=== PATIENT | female | born 1950 | race Caucasian/White ===

== ENCOUNTER 2016-12-21 03:14 | Observation (INO) | payer MEDICAID, OTHER ==
[2016-12-21] MEDS ORDERED: NS 1,000 ML IV ONE (03:23)
[2016-12-21] MEDS ORDERED: NITROGLYCERIN 0.4 MG BTL SL PRN ×2 (03:23→06:20)
[2016-12-21] MEDS ORDERED: NITROGLYCERIN 0.4 MG BTL SL ONE (03:25)
--- NOTE | 2016-12-21 03:27 | EDPHY ---
H & P HPI/ROS: HPI CHIEF COMPLAINT: Chest Pain, back pain HISTORY OF PRESENT ILLNESS: This patient very pleasant 66-year-old female, she presents emergency room by EMS for chest discomfort and back discomfort. Patient states around 11:00 p.m. at night she developed this discomfort across her upper back both sides both shoulders this pain was an achy sensation and then developed into her left side of her chest. She did become nauseous and diaphoretic with this. She tells me she felt very flushed. The pain persisted she did take full-dose aspirin and nitroglycerin that did not help. Due to the ongoing chest discomfort she called 911. EMS arrived. They did give her another dose of nitro which did help with her chest discomfort. She tells me that she initially had 10/10 discomfort now it is currently 2/10. No jaw pain no arm pain. No numbness or tingling. Denies pleuritic pain or shortness of breath. Past Medical History: Coronary artery disease with stents, hypertension, diabetes Past Surgical History: Cardiac stents Social History: Smokes marijuana regularly, denies drugs or alcohol or tobacco Family History: Noncontributory ROS REVIEW OF SYSTEMS: A comprehensive 10 point review of systems is otherwise negative aside from elements mentioned in the history of present illness. Exam Constitutional appears well nontoxic, triage nursing summary reviewed, vital signs reviewed, awake/alert. Eyes normal conjunctivae and sclera, EOMI, PERRLA. HENT normal inspection, atraumatic, moist mucus membranes, no epistaxis, neck supple/ no meningismus, no raccoon eyes. Respiratory clear to auscultation bilaterally, normal breath sounds, no respiratory distress, no wheezing. Cardiovascular rate normal, regular rhythm, no murmur, no edema, distal pulses normal. Gastrointestinal soft, non-tender, no rebound, no guarding, normal bowel sounds, no distension, no pulsatile mass. Genitourinary no CVA tenderness. Musculoskeletal no midline vertebral tenderness, full range of motion, no calf swelling, no tenderness of extremities, no meningismus, good pulses, neurovascularly intact. Skin pink, warm, & dry, no rash, skin atraumatic. Neurologic awake, alert and oriented x 3, AAOx3, moves all 4 extremities equally, motor intact, sensory intact, CN II-XII intact, normal cerebellar, normal vision, normal speech. Psychiatric normal mood/affect. Heme/Lymph/Immune no lymphadenopathy. Differential diagnosis includes but is not limited to: ACS, atypical chest pain , pneumothorax, pneumonia, pulmonary embolism, aortic dissection, congestive heart failure, tumor, musculoskeletal pain, esophageal pain, GERD, peptic ulcer disease, pancreatitis Medical Decision Making: Plan for this patient EKG, full director cardiac IV establishment, check blood work, troponin, chest x-ray. Re-evaluation: EKG interpretation by me on record in [facility] system. Impression time of EKG 3:19 a.m., this is sinus rhythm rate of 74 I do not appreciate acute ischemic changes specifically no ST elevation or significant ST depression. Slight motion artifact in inferior leads. ED x-ray chest one view: Negative for acute cardiopulmonary disease. Image interpreted by myself. 0356AM: Re-evaluation at this time she did receive a dose of nitroglycerin here in the emergency room. Did eliminate her chest discomfort. Blood pressures improved 144/86 Repeat EKG time 4:07 a.m.. This EKG shows sinus rhythm rate of 68 no appreciable acute ischemic changes specifically no ST elevation or ST depression. No significant T-wave abnormalities. Nonischemic EKG. 0429AM: Re-evaluation at this time patient resting comfortably. No chest pain. Spoke with the hospitalist service about admission for this patient patient agrees for admission. Spoke with Dr. Valencia. She is hemodynamically stable no acute distress chest pain-free negative troponin, negative D-dimer and 2 EKGs that are nonischemic. Will admit to [facility] for chest pain and further evaluation rule out. Patient agrees for this plan. Source: Patient, Family, EMS - Personal History Tetanus Vaccine Date: 2005 - Medical/Surgical History Hx Asthma: No Hx Chronic Respiratory Disease: No Hx Diabetes: Yes Hx Cardiac Disease: Yes Hx Renal Disease: No Hx Cirrhosis: No Hx Alcoholism: No Hx HIV/AIDS: No Hx Splenectomy or Spleen Trauma: No Other PMH: hypercholesteremia, diabetes, PTSD, CAD, PCI with stents in 2010, HTN - Social History Smoking Status: Never smoked Constitutional: Initial Vital Signs Temperature (C) 36.6 C 12/21/16 03:24 Heart Rate 81 12/21/16 03:24 Respiratory Rate 16 12/21/16 03:24 Blood Pressure 172/102 H 12/21/16 03:24 O2 Sat (%) 96 12/21/16 03:24 O2 Delivery Mode Room Air Allergies/Adverse Reactions: morphine Allergy (Unknown, Verified 12/21/16 03:23) Home Medications: Medication Instructions Recorded Ezetimibe [Zetia] 10 mg PO DAILY 01/11/11 Lisinopril [Zestril 10 mg (*)] 10 mg PO DAILY 01/11/11 Aspirin [Aspirin 325 mg (*)] 325 mg PO DAILY 09/22/14 Cholecalciferol Vit D3 [Vitamin D3 1,000 units PO BID 09/22/14 (*)] Herbals/Supplements -Info Only 1 ea PO DAILY 09/22/14 Otto-3 Fatty Acids [Fish Oil 1000 1,000 mg PO HS 09/22/14 mg (*)] Propranolol HCl [Inderal 20mg (*)] 20 mg PO BID 09/22/14 Topiramate [Topamax 25MG (*)] 25 mg PO HS 09/22/14 Vitamin B Complex [B Complex] 1 each PO DAILY 09/22/14 metFORMIN HCL [Glucophage 500 mg 1,000 mg PO BIDMEAL 09/22/14 (*)] Atorvastatin Calcium [Lipitor 40 80 mg PO HS #30 tab 09/23/14 mg (*)] Clopidogrel Bisulfate [Plavix (*)] 75 mg PO DAILY #30 tab 09/23/14 Nitroglycerin [Nitrostat 0.4 mg 0.4 mg SL PRN PRN #1 btl 09/23/14 (*)] Venlafaxine Xr [Effexor Xr] 150 mg PO DAILY 09/23/14 buPROPion SR [Wellbutrin 100mg SR 200 mg PO DAILY 09/23/14 (*)] Medical Decision Making - Data Points Laboratory Results: Laboratory Results 12/21/16 03:15 12/21/16 03:15 12/21/16 12/21/16 12/21/16 03:15 03:15 03:15 WBC 5.67 10^3/uL 10^3/uL (3.80-9.50) RBC 4.77 10^6/uL 10^6/uL (4.18-5.33) Hgb 14.2 g/dL g/dL (12.6-16.3) Hct 42.3 % % (38.0-47.0) MCV 88.7 fL fL (81.5-99.8) MCH 29.8 pg pg (27.9-34.1) MCHC 33.6 g/dL g/dL (32.4-36.7) RDW 12.8 % % (11.5-15.2) Plt Count 204 10^3/uL 10^3/uL (150-400) MPV 9.7 fL fL (8.7-11.7) Neut % (Auto) 64.8 % % (39.3-74.2) Lymph % (Auto) 23.3 % % (15.0-45.0) [place] % (Auto) 6.7 % % (4.5-13.0) Eos % (Auto) 4.6 % % (0.6-7.6) Baso % (Auto) 0.4 % % (0.3-1.7) Nucleat RBC Rel Count 0.0 % % (0.0-0.2) Absolute Neuts (auto) 3.68 10^3/uL 10^3/uL (1.70-6.50) Absolute Lymphs (auto) 1.32 10^3/uL 10^3/uL (1.00-3.00) Absolute Monos (auto) 0.38 10^3/uL 10^3/uL (0.30-0.80) Absolute Eos (auto) 0.26 10^3/uL 10^3/uL (0.03-0.40) Absolute Basos (auto) 0.02 10^3/uL 10^3/uL (0.02-0.10) Absolute Nucleated RBC 0.00 10^3/uL 10^3/uL (0-0.01) Immature Gran % 0.2 % % (0.0-1.1) Immature Gran # 0.01 10^3/uL 10^3/uL (0.00-0.10) PT 13.3 SEC SEC (12.0-15.0) INR 1.02 (0.83-1.16) APTT 27.0 SEC SEC (23.0-38.0) D-Dimer < 0.27 ug/mLFEU ug/mLFEU (0.00-0.50) Sodium 145 mEq/L H mEq/L (134-144) Potassium 3.7 mEq/L mEq/L (3.5-5.2) Chloride 109 mEq/L mEq/L (97-110) Carbon Dioxide 25 mEq/l mEq/l (22-31) Anion Gap 11 mEq/L mEq/L (8-16) BUN 23 mg/dL mg/dL (7-23) Creatinine 0.9 mg/dL mg/dL (0.6-1.0) Estimated GFR > 60 Glucose 136 mg/dL H mg/dL (70-100) Calcium 9.1 mg/dL mg/dL (8.5-10.4) Magnesium 2.2 mg/dL mg/dL (1.6-2.3) Total Bilirubin 0.4 mg/dL mg/dL (0.1-1.4) Conjugated Bilirubin 0.4 mg/dL mg/dL (0.0-0.5) Unconjugated Bilirubin 0.0 mg/dL mg/dL (0.0-1.1) AST 22 IU/L IU/L (14-46) ALT 32 IU/L IU/L (9-52) Alkaline Phosphatase 66 IU/L IU/L (38-126) Creatine Kinase 46 IU/L IU/L (0-156) CK-MB (CK-2) Fraction 0.47 ng/mL ng/mL (0-3.19) Troponin I < 0.012 ng/mL ng/mL (0-0.034) NT-Pro-B Natriuret Pep 117 pg/mL pg/mL (0-125) Total Protein 6.3 g/dL g/dL (6.3-8.2) Albumin 4.1 g/dL g/dL (3.5-5.0) Lipase 455.0 IU/L H IU/L (23-300) Medications Given: Discontinued Medications Sodium Chloride (Ns) 1,000 mls @ 0 mls/hr IV ONCE ONE PRN Reason: Wide Open Stop: 12/21/16 03:24 Last Admin: 12/21/16 04:00 Dose: 1,000 mls Nitroglycerin (Nitrostat) 0.4 mg SL Q5M PRN PRN Reason: Chest Pain Stop: 12/21/16 03:34 Last Admin: 12/21/16 03:30 Dose: 0.4 mg Departure - Departure Disposition: [facility] Inpatient Acute Clinical Impression: Chest pain Qualifiers: Chest pain type: unspecified Qualified Code(s): R07.9 - Chest pain, unspecified Condition: Good Referrals: Patient,NotPresent [Unknown] - As per Instructions
[2016-12-21 03:31] LABS: % IMMATURE GRANULYOCYTES 0.2 % (0.0-1.1); ABSOLUTE IMMATURE GRANULOCYTES 0.01 10^3/uL (0.00-0.10); ADD DIFF? NO; ADD MORPH? NO; ADD SCAN? NO; ATYPICAL LYMPHOCYTE FLAG 0 (0-99); FRAGMENT RBC FLAG 0 (0-99); HEMATOCRIT 42.3 % (38.0-47.0); HEMOGLOBIN 14.2 g/dL (12.6-16.3); LEFT SHIFT FLG 0 (0-99); LIPEMIA HEMOLYSIS FLAG 80 (0-99); MEAN CELL HEMOGLOBIN 29.8 pg (27.9-34.1); MEAN CELL HEMOGLOBIN CONCENTR. 33.6 g/dL (32.4-36.7); MEAN CELL VOLUME 88.7 fL (81.5-99.8); MEAN PLATELET VOLUME 9.7 fL (8.7-11.7); PLATELET CLUMPS FLAG 10 (0-99); PLATELET COUNT 204 10^3/uL (150-400); RED BLOOD CELL COUNT 4.77 10^6/uL (4.18-5.33); RED CELL DISTRIBUTION WIDTH 12.8 % (11.5-15.2)
--- NOTE | 2016-12-21 03:31 | CPEKG ---
Heart Rate: 74 RR Interval: 811 P-R Interval: 184 QRSD Interval: 98 QT Interval: 440 QTC Interval: 489 P [place]: 51 QRS [place]: -9 T Wave [place]: 75 EKG Severity - BORDERLINE ECG - EKG Impression: SINUS RHYTHM EKG Impression: BORDERLINE PROLONGED QT INTERVAL Electronically Signed By: Emir Car 21-Dec-2016 06:41:08
[2016-12-21 03:40] LABS: INR 1.02 (0.83-1.16); PROTIME(PATIENT) 13.3 SEC (12.0-15.0)
[2016-12-21 04:01] LABS: ALANINE AMINOTRANSFERASE 32 IU/L (9-52); ALBUMIN 4.1 g/dL (3.5-5.0); ALKALINE PHOSPHATASE 66 IU/L (38-126); ANION GAP 11 mEq/L (8-16); ASPARTATE AMINOTRANSFERASE 22 IU/L (14-46); BILIRUBIN,TOTAL 0.4 mg/dL (0.1-1.4); BILIRUBIN-CONJUGATED 0.4 mg/dL (0.0-0.5); CALCIUM 9.1 mg/dL (8.5-10.4); CARBON DIOXIDE 25 mEq/l (22-31); CHLORIDE 109 mEq/L (97-110); CREATININE 0.9 mg/dL (0.6-1.0); GLOMERULAR FILTRATION RATE > 60; GLUCOSE 136 mg/dL (70-100); MAGNESIUM 2.2 mg/dL (1.6-2.3); POTASSIUM 3.7 mEq/L (3.5-5.2); SODIUM 145 mEq/L (134-144); TOTAL PROTEIN 6.3 g/dL (6.3-8.2)
[2016-12-21 04:13] LABS: CREATINE KINASE-MB FRACTION 0.47 ng/mL (0-3.19); TROPONIN I < 0.012 ng/mL (0-0.034)
--- NOTE | 2016-12-21 07:34 | PDGENHP ---
History and Physical - Chief Complaint chest pain - History of Present Illness Patient is a 66 year old female with DM2, CAD (previous PCI in 2010, 2014), HTN , HLD who presents to the ED with complaint of chest pain. Patient states she was lying in bed reading a book this evening when she felt sudden onset, dull achy mid-back pain that radiated into her chest. At first she thought it was musculoskeletal because she had been doing a lot of housework in the day. However, pain persisted over the following hour, did not improve with SL nitro, so she called EMS. She reports some associated nausea, diaphoresis, but denies any shortness of breath, orthopnea, palpitations, lightheadedness or headache. EMS gave her another SL nitro and full dose aspirin en route to ED. Of note, patient reports her last stress test was about 1 year ago and unremarkable. Prior to this evening's episode, she denies any recent cardiac symptoms. On arrival to the ED, patient was afebrile, moderately hypertensive, saturating well. Initial EKG did not show any obvious ischemia, labs, including CBC, BMP, troponin, were within normal limits. She was given another SL nitro and finally her pain began to subside. She was then admitted to the hospitalist service for further management. History Information - Allergies/Home Medication List Allergies/Adverse Reactions: morphine Allergy (Unknown, Verified 12/21/16 03:23) Home Medications: Lisinopril [Zestril 10 mg (*)] 10 mg PO HS 01/11/11 [Last Taken 09/21/14] Aspirin [Aspirin 325 mg (*)] 325 mg PO DAILY 09/22/14 [Last Taken 09/22/14] Cholecalciferol Vit D3 [Vitamin D3 (*)] 1,000 units PO BID 09/22/14 [Last Taken Unknown] Herbals/Supplements -Info Only 1 ea PO DAILY 09/22/14 [Last Taken Unknown] [place]-3 Fatty Acids [Fish Oil 1000 mg (*)] 1,000 mg PO HS 09/22/14 [Last Taken Unknown] Propranolol HCl [Inderal 20mg (*)] 20 mg PO BID 09/22/14 [Last Taken 09/21/14] Topiramate [Topamax 25MG (*)] 25 mg PO HS 09/22/14 [Last Taken 09/21/14] Vitamin B Complex [B Complex] 1 each PO DAILY 09/22/14 [Last Taken Unknown] metFORMIN HCL [Glucophage 500 mg (*)] 1,000 mg PO DAILY18 09/22/14 [Last Taken 09/21/14] Venlafaxine Xr [Effexor Xr] 150 mg PO DAILY 09/23/14 [Last Taken Unknown] buPROPion SR [Wellbutrin 100mg SR (*)] 300 mg PO DAILY 09/23/14 [Last Taken Unknown] Rosuvastatin Calcium [Crestor 20mg (*)] 20 mg PO HS 12/21/16 [Last Taken Unknown ] Topiramate [Topamax 25MG (*)] 75 mg PO DAILY 12/21/16 [Last Taken Unknown] buPROPion SR [Wellbutrin 100mg SR (*)] 100 mg PO HS 12/21/16 [Last Taken Unknown ] I have personally reviewed and updated: family history, medical history, social history, surgical history - Past Medical History Additional medical history: DM2, on insulin and metformin. Hypertension. Hyperlipidemia. CAD with PCI to LAD in 2010, repeat PCI to LAD in 2014. Depression/anxiety/PTSD - Surgical History Additional surgical history: x2. foot surgeries. wisdom teeth - Family History Additional family history: Father: CAD. Mother: CVA - Social History Smoking Status: Never smoked Alcohol Use: None Drug Use: None Additional social history: Patient lives with her daughter and , is independent in ADLs. Review of Systems ROS: 10pt was reviewed & negative except for what was stated in HPI & below Physical Exam Temp Pulse Resp BP Pulse Ox 36.6 C 68 16 142/83 H 95 12/21/16 04:59 12/21/16 05:21 12/21/16 05:21 12/21/16 05:21 12/21/16 05:21 Constitutional: no apparent distress, appears nourished, not in pain Eyes: PERRL, anicteric sclera, EOMI Ears, Nose, Mouth, Throat: moist mucous membranes, hearing normal, ears appear normal, no oral mucosal ulcers Cardiovascular: regular rate and rhythym, no murmur, rub, or gallop, pulses symmetric bilaterally, No JVD, No edema Peripheral Pulses: 2+: dorsalis-pedis (R), dorsalis-pedis (L) Respiratory: no respiratory distress, no rales or rhonchi, clear to auscultation Gastrointestinal: normoactive bowel sounds, soft, non-tender abdomen, no palpable masses, No tenderness, No guarding, No rebound Genitourinary: no bladder fullness, no bladder tenderness Skin: warm, normal color, no rashes or abrasions, no fluctuance, no induration, No mottled Musculoskeletal: full muscle strength, no muscle tenderness, normal joint ROM, no joint effusions Neurologic: AAOx3, sensation intact bilaterally, CN II-XII Intact, No weakness, No numbness Psychiatric: interacting appropriately, not anxious, not encephalopathic, thought process linear Lab Data & Imaging Review 12/21/16 03:15 12/21/16 03:15 WBC 5.67 10^3/uL (3.80-9.50) 12/21/16 03:15 RBC 4.77 10^6/uL (4.18-5.33) 12/21/16 03:15 Hgb 14.2 g/dL (12.6-16.3) 12/21/16 03:15 Hct 42.3 % (38.0-47.0) 12/21/16 03:15 MCV 88.7 fL (81.5-99.8) 12/21/16 03:15 MCH 29.8 pg (27.9-34.1) 12/21/16 03:15 MCHC 33.6 g/dL (32.4-36.7) 12/21/16 03:15 RDW 12.8 % (11.5-15.2) 12/21/16 03:15 Plt Count 204 10^3/uL (150-400) 12/21/16 03:15 MPV 9.7 fL (8.7-11.7) 12/21/16 03:15 Neut % (Auto) 64.8 % (39.3-74.2) 12/21/16 03:15 Lymph % (Auto) 23.3 % (15.0-45.0) 12/21/16 03:15 [place] % (Auto) 6.7 % (4.5-13.0) 12/21/16 03:15 Eos % (Auto) 4.6 % (0.6-7.6) 12/21/16 03:15 Baso % (Auto) 0.4 % (0.3-1.7) 12/21/16 03:15 Nucleat RBC Rel Count 0.0 % (0.0-0.2) 12/21/16 03:15 Absolute Neuts (auto) 3.68 10^3/uL (1.70-6.50) 12/21/16 03:15 Absolute Lymphs (auto) 1.32 10^3/uL (1.00-3.00) 12/21/16 03:15 Absolute Monos (auto) 0.38 10^3/uL (0.30-0.80) 12/21/16 03:15 Absolute Eos (auto) 0.26 10^3/uL (0.03-0.40) 12/21/16 03:15 Absolute Basos (auto) 0.02 10^3/uL (0.02-0.10) 12/21/16 03:15 Absolute Nucleated RBC 0.00 10^3/uL (0-0.01) 12/21/16 03:15 Immature Gran % 0.2 % (0.0-1.1) 12/21/16 03:15 Immature Gran # 0.01 10^3/uL (0.00-0.10) 12/21/16 03:15 PT 13.3 SEC (12.0-15.0) 12/21/16 03:15 INR 1.02 (0.83-1.16) 12/21/16 03:15 APTT 27.0 SEC (23.0-38.0) 12/21/16 03:15 D-Dimer < 0.27 ug/mLFEU (0.00-0.50) 12/21/16 03:15 Sodium 145 mEq/L (134-144) H 12/21/16 03:15 Potassium 3.7 mEq/L (3.5-5.2) 12/21/16 03:15 Chloride 109 mEq/L (97-110) 12/21/16 03:15 Carbon Dioxide 25 mEq/l (22-31) 12/21/16 03:15 Anion Gap 11 mEq/L (8-16) 12/21/16 03:15 BUN 23 mg/dL (7-23) 12/21/16 03:15 Creatinine 0.9 mg/dL (0.6-1.0) 12/21/16 03:15 Estimated GFR > 60 12/21/16 03:15 Glucose 136 mg/dL (70-100) H 12/21/16 03:15 Calcium 9.1 mg/dL (8.5-10.4) 12/21/16 03:15 Magnesium 2.2 mg/dL (1.6-2.3) 12/21/16 03:15 Total Bilirubin 0.4 mg/dL (0.1-1.4) 12/21/16 03:15 Conjugated Bilirubin 0.4 mg/dL (0.0-0.5) 12/21/16 03:15 Unconjugated Bilirubin 0.0 mg/dL (0.0-1.1) 12/21/16 03:15 AST 22 IU/L (14-46) 12/21/16 03:15 ALT 32 IU/L (9-52) 12/21/16 03:15 Alkaline Phosphatase 66 IU/L (38-126) 12/21/16 03:15 Creatine Kinase 46 IU/L (0-156) 12/21/16 03:15 CK-MB (CK-2) Fraction 0.47 ng/mL (0-3.19) 12/21/16 03:15 Troponin I < 0.012 ng/mL (0-0.034) 12/21/16 03:15 NT-Pro-B Natriuret Pep 117 pg/mL (0-125) 12/21/16 03:15 Total Protein 6.3 g/dL (6.3-8.2) 12/21/16 03:15 Albumin 4.1 g/dL (3.5-5.0) 12/21/16 03:15 Lipase 455.0 IU/L (23-300) H 12/21/16 03:15 Visualized and Interpreted Chest x-ray results: Yes Chest X-Ray results: no infiltrate, normal Visualized and Interpreted EKG results: Yes EKG Interpretation: Positive for: normal sinsus rhythm (no obnvious st/twave changes) Assessment & Plan Assessment: Patient is a 66 year old female with previous CAD s/p PCI, DM2, HTN, HLD who presents to the ED with complaint of chest pain radiating into her back. ED evaluation reveals negative troponin, normal initial EKG, but given her history she is being admitted to rule out ACS and for further risk stratification Plan: # chest pain Patient is at high risk for cardiac chest pain. Pain has resolved with nitro. Initial EKG and troponin neg. CXR shows normal mediastinum, no obvious edema or effusions. Will follow serial troponins and EKGs, check TTE. Last normal stress test was about 1 year ago. If ACS is ruled out, consider repeat stress. Will also continue patient's home CAD regimen of aspirin, plavix, acei, b-kareem, statin. # Hypertension BP was moderately elevated on presentation, improved without intervention. Will confirm and continue home meds. # DM2 Patient took her evening Levemir on 12/20, is npo if stress test needed, so will need to monitor for signs of hypoglycemia. # depression/anxiety Stable, resume home meds. # dispo: admit under observation status # gen: NPO Full code
--- NOTE | 2016-12-21 07:36 | CPEKG ---
Heart Rate: 68 RR Interval: 882 P-R Interval: 180 QRSD Interval: 96 QT Interval: 440 QTC Interval: 469 P [place]: 51 QRS [place]: 6 T Wave [place]: 84 EKG Severity - NORMAL ECG - EKG Impression: SINUS RHYTHM Electronically Signed By: Anneliese Granado 23-Dec-2016 14:59:48
[2016-12-21] MEDS ORDERED: PROPRANOLOL HCL 20 MG TAB PO SCH (09:00)
[2016-12-21] MEDS ORDERED: TOPIRAMATE 25 MG TAB PO SCH ×2 (09:00→21:00)
[2016-12-21] MEDS ORDERED: buPROPion SR 100 MG TAB PO SCH ×2 (09:00→21:00)
[2016-12-21] MEDS ORDERED: CLOPIDOGREL BISULFATE 75 MG TAB PO SCH (09:00)
[2016-12-21] MEDS ORDERED: VENLAFAXINE XR 150 MG CAP PO SCH (09:00)
[2016-12-21] MEDS ORDERED: ASPIRIN 325 MG TAB PO SCH (09:00)
--- NOTE | 2016-12-21 09:02 | CPEKG ---
Heart Rate: 62 RR Interval: 968 P-R Interval: 176 QRSD Interval: 100 QT Interval: 444 QTC Interval: 451 P [place]: 60 QRS [place]: -13 T Wave [place]: 82 EKG Severity - ABNORMAL ECG - EKG Impression: SINUS RHYTHM EKG Impression: PROBABLE LEFT VENTRICULAR HYPERTROPHY Electronically Signed By: Otto Mcclelland 21-Dec-2016 14:29:20
--- NOTE | 2016-12-21 10:43 | ECHO ---
[id number] + + [phone] : : [place] [id number] : : [phone] + + Adult Echocardiographic Report + -----+ :Name: Poornima PENA Date: 12/21/2016 07:42 AM : : Hospital Admission Number: [id number] Location : 142: :: 1950 Gender: Female Height: 67 in : :Age: 66 yrs Race: WH Weight: 185 lb : :Reason For Study: Chest pain radiating into back : : BSA: 2.0 meters2 : :History: LAD stent : + -----+ MMode/2D Measurements \T\ Calculations IVSd: 0.80 cm LVIDd: 4.6 cm FS: 32.2 % Ao root diam: LVPWd: 0.91 cm LVIDs: 3.1 cm EDV(Teich): 3.2 cm 95.3 ml LA dimension: ESV(Teich): 3.7 cm 37.6 ml EF(Teich): 60.6 % LVLd ap4: 7.8 cm SV(MOD-sp4): EDV(MOD-sp4): 35.0 ml 55.0 ml LVLs ap4: 6.7 cm ESV(MOD-sp4): 20.0 ml EF(MOD-sp4): 63.6 % Normal Measurement Values: + + :LVIDd (3.5-5.7cm) IVSd (0.6-1.1cm) LVPWd (0.6-1.1cm) Aortic Root (2.0-3.7cm)Left Atrium (1.5-4.0cm): :LV Vol(d) (76-115ml) LV Vol(s) (29-48ml) Ejec Fraction (50-65%)PV [place] (0.6- 1.2m/s) TV [place] (0.4-1.0m/s) : :MV E [place] (0.8-1.0m/s)MV A [place] (0.3-1.0m/s)LVOT [place] (0.7-1.2m/s) Asc Ao [place] ( 0.9-1.8m/s) : + + Doppler Measurements \T\ Calculations MV E max roosevelt: 75.5 cm/sec Ao V2 max: 111.3 cm/sec TR max roosevelt: 228.0 cm/sec MV A max roosevelt: 64.2 cm/sec Ao max P.0 mmHg TR max P.8 mmHg MV E/A: 1.2 RAP systole: 5.0 mmHg RVSP(TR): 25.8 mmHg Left Ventricle The left ventricle is normal in size. There is normal left ventricular wall thickness. Left ventricular systolic function is normal. Ejection Fraction = 60%. No regional wall motion abnormalities noted. Right Ventricle The right ventricle is normal in size and function. Atria The left atrial size is normal. Right atrial size is normal. The interatrial septum is intact with no evidence for an atrial septal defect. Mitral Valve The mitral valve is normal in structure and function. There is no evidence of mitral valve prolapse. There is no mitral valve stenosis. Tricuspid Valve Normal tricuspid valve. There is mild tricuspid regurgitation. Aortic Valve The aortic valve is trileaflet. The aortic valve opens well. There is no aortic stenosis. There is no aortic insufficiency. Pulmonic Valve The pulmonic valve is normal in structure and function. There is no pulmonic valvular regurgitation. Great Vessels The aortic root is normal size. Pericardium/Pleural There is no pericardial effusion. Conclusion A complete two-dimensional transthoracic echocardiogram was performed (2D, M-mode, Doppler and color flow Doppler). Left ventricular systolic function is normal. Ejection Fraction = 60%. No regional wall motion abnormalities noted. There is mild tricuspid regurgitation. Final Reading Physician: Anastacia Freitas signed on 12/21/2016 10:42 AM Ordering Physician: Rose Marie Valencia Performed By: Emma Sosa, DEREJECS
[2016-12-21 11:48] VITALS: TEMP 97.3
--- NOTE | 2016-12-21 13:33 | PDCARCONS ---
Cardiology Consult Reason for Consult: Chest pain with history of CAD Chief Complaint: chest pain Requesting Physician: hospitalist History of Present Illness: Patient is a 66 y/o female with history of CAD s/p PCI to the LAD in 2010, and again in 2014 due to restenosis, HTN, HLP, and DM, who presents to [facility] ER via EMS after noting chest discomfort at home. Discomfort was best clarified as "pain" with substernal location and radiation into the back. Initial discomfort was 10/10, but by the time she was seen in the ER, it was down to a 2 /10. At home, NTG was dosed with little to no effect. With EMS, therapy was redosed again, and by the time she reached the ER, the pains had subsided. Nausea was noted with diaphoresis, but no emesis. No PND or orthopnea. Compliance with medical therapy has been good. was at bedside today. Blood pressures have been controlled at home. Cardiac biomarkers without elevation noted. ECG without dynamic ST elevation noted, but non specific ST/T wave changes were appreciated. At present, the patient is without any cardiovascular complaints. Ten point review of systems was unremarkable outside of that which was mentioned above. History Information - Allergies/Home Medication List Allergies/Adverse Reactions: morphine Allergy (Unknown, Verified 12/21/16 03:23) Home Medications: RX: Lisinopril [Zestril 10 mg (*)] 10 mg PO HS 01/11/11 [Last Taken 09/21/14] RX: Aspirin [Aspirin 325 mg (*)] 325 mg PO DAILY 09/22/14 [Last Taken 09/22/14] RX: Cholecalciferol Vit D3 [Vitamin D3 (*)] 1,000 units PO BID 09/22/14 [Last Taken Unknown] RX: Herbals/Supplements -Info Only 1 ea PO DAILY 09/22/14 [Last Taken Unknown] RX: [place]-3 Fatty Acids [Fish Oil 1000 mg (*)] 1,000 mg PO HS 09/22/14 [Last Taken Unknown] RX: Propranolol HCl [Inderal 20mg (*)] 20 mg PO BID 09/22/14 [Last Taken ] RX: Topiramate [Topamax 25MG (*)] 25 mg PO HS 09/22/14 [Last Taken 09/21/14] RX: Vitamin B Complex [B Complex] 1 each PO DAILY 09/22/14 [Last Taken Unknown] RX: metFORMIN HCL [Glucophage 500 mg (*)] 1,000 mg PO DAILY18 09/22/14 [Last Taken 09/21/14] RX: Venlafaxine Xr [Effexor Xr] 150 mg PO DAILY 09/23/14 [Last Taken Unknown] RX: buPROPion SR [Wellbutrin 100mg SR (*)] 300 mg PO DAILY 09/23/14 [Last Taken Unknown] Rosuvastatin Calcium [Crestor 20mg (*)] 20 mg PO HS 12/21/16 [Last Taken Unknown ] Topiramate [Topamax 25MG (*)] 75 mg PO DAILY 12/21/16 [Last Taken Unknown] buPROPion SR [Wellbutrin 100mg SR (*)] 100 mg PO HS 12/21/16 [Last Taken Unknown ] I have personally reviewed and updated: family history, medical history, social history, surgical history - Past Medical History coronary artery disease, diabetes type 2, hypertension, hyperlipidemia, psychiatric history - Surgical History Reports: coronary stent - Family History Positive for: hypertension - Social History Smoking Status: Never smoked Alcohol Use: None Drug Use: Marijuana Cardiac History - Cardiac History Past Cardiac History: CAD, PCI Cardiac Risk Factors: hypertension (>140/90), lipidemia, diabetes mellitus Timing/Duration: Hours Severity: severe Severity Scale: 10 Location: substernal Activities at Onset: rest Modifying Factors: improves with: nitroglycerin, oxygen Associated Symptoms: chest pain, diaphoresis, headaches, malaise, nausea/ vomiting, shortness of breath, weakness CRISTI Risk Evaluation age greater or equal to 65: no greater or equal to 3 CAD risk factors: yes known CAD(stenosis greater or eqaul to 50%): yes ASA use in past 7 days: yes severe angina(greater or equal to 2 episodes in 24hrs): no EKG ST changes greater or equal to 0.5mm: yes positive cardiac marker: no Total Score: 5 CRISTI Score: 26.2% risk Physical Exam Temp Pulse Resp BP Pulse Ox 36.3 C 66 20 158/88 H 96 12/21/16 11:47 12/21/16 11:47 12/21/16 11:47 12/21/16 11:47 12/21/16 11:47 Constitutional: no apparent distress, appears nourished, not in pain Eyes: PERRL Ears, Nose, Mouth, Throat: moist mucous membranes, hearing normal, ears appear normal Cardiovascular: regular rate and rhythym, no murmur, rub, or gallop, No JVD, No edema Peripheral Pulses: 2+: dorsalis-pedis (R), dorsalis-pedis (L) Respiratory: no respiratory distress, no rales or rhonchi, clear to auscultation Gastrointestinal: normoactive bowel sounds Skin: warm, No rash Musculoskeletal: full muscle strength, no muscle tenderness, normal joint ROM Neurologic: AAOx3 Psychiatric: interacting appropriately, not anxious, not encephalopathic Lab and Imaging 12/21/16 03:15 12/21/16 03:15 WBC 5.67 10^3/uL (3.80-9.50) 12/21/16 03:15 RBC 4.77 10^6/uL (4.18-5.33) 12/21/16 03:15 Hgb 14.2 g/dL (12.6-16.3) 12/21/16 03:15 Hct 42.3 % (38.0-47.0) 12/21/16 03:15 MCV 88.7 fL (81.5-99.8) 12/21/16 03:15 MCH 29.8 pg (27.9-34.1) 12/21/16 03:15 MCHC 33.6 g/dL (32.4-36.7) 12/21/16 03:15 RDW 12.8 % (11.5-15.2) 12/21/16 03:15 Plt Count 204 10^3/uL (150-400) 12/21/16 03:15 MPV 9.7 fL (8.7-11.7) 12/21/16 03:15 Neut % (Auto) 64.8 % (39.3-74.2) 12/21/16 03:15 Lymph % (Auto) 23.3 % (15.0-45.0) 12/21/16 03:15 [place] % (Auto) 6.7 % (4.5-13.0) 12/21/16 03:15 Eos % (Auto) 4.6 % (0.6-7.6) 12/21/16 03:15 Baso % (Auto) 0.4 % (0.3-1.7) 12/21/16 03:15 Nucleat RBC Rel Count 0.0 % (0.0-0.2) 12/21/16 03:15 Absolute Neuts (auto) 3.68 10^3/uL (1.70-6.50) 12/21/16 03:15 Absolute Lymphs (auto) 1.32 10^3/uL (1.00-3.00) 12/21/16 03:15 Absolute Monos (auto) 0.38 10^3/uL (0.30-0.80) 12/21/16 03:15 Absolute Eos (auto) 0.26 10^3/uL (0.03-0.40) 12/21/16 03:15 Absolute Basos (auto) 0.02 10^3/uL (0.02-0.10) 12/21/16 03:15 Absolute Nucleated RBC 0.00 10^3/uL (0-0.01) 12/21/16 03:15 Immature Gran % 0.2 % (0.0-1.1) 12/21/16 03:15 Immature Gran # 0.01 10^3/uL (0.00-0.10) 12/21/16 03:15 PT 13.3 SEC (12.0-15.0) 12/21/16 03:15 INR 1.02 (0.83-1.16) 12/21/16 03:15 APTT 27.0 SEC (23.0-38.0) 12/21/16 03:15 D-Dimer < 0.27 ug/mLFEU (0.00-0.50) 12/21/16 03:15 Sodium 145 mEq/L (134-144) H 12/21/16 03:15 Potassium 3.7 mEq/L (3.5-5.2) 12/21/16 03:15 Chloride 109 mEq/L (97-110) 12/21/16 03:15 Carbon Dioxide 25 mEq/l (22-31) 12/21/16 03:15 Anion Gap 11 mEq/L (8-16) 12/21/16 03:15 BUN 23 mg/dL (7-23) 12/21/16 03:15 Creatinine 0.9 mg/dL (0.6-1.0) 12/21/16 03:15 Estimated GFR > 60 12/21/16 03:15 Glucose 136 mg/dL (70-100) H 12/21/16 03:15 Calcium 9.1 mg/dL (8.5-10.4) 12/21/16 03:15 Magnesium 2.2 mg/dL (1.6-2.3) 12/21/16 03:15 Total Bilirubin 0.4 mg/dL (0.1-1.4) 12/21/16 03:15 Conjugated Bilirubin 0.4 mg/dL (0.0-0.5) 12/21/16 03:15 Unconjugated Bilirubin 0.0 mg/dL (0.0-1.1) 12/21/16 03:15 AST 22 IU/L (14-46) 12/21/16 03:15 ALT 32 IU/L (9-52) 12/21/16 03:15 Alkaline Phosphatase 66 IU/L (38-126) 12/21/16 03:15 Creatine Kinase 46 IU/L (0-156) 12/21/16 03:15 CK-MB (CK-2) Fraction 0.47 ng/mL (0-3.19) 12/21/16 03:15 Troponin I < 0.012 ng/mL (0-0.034) 12/21/16 09:00 NT-Pro-B Natriuret Pep 117 pg/mL (0-125) 12/21/16 03:15 Total Protein 6.3 g/dL (6.3-8.2) 12/21/16 03:15 Albumin 4.1 g/dL (3.5-5.0) 12/21/16 03:15 Lipase 455.0 IU/L (23-300) H 12/21/16 03:15 Visualized and Interpreted Chest x-ray results: Yes Chest X-ray Interpretation: no infiltrate, normal Visualized and Interpreted EKG results: Yes EKG Interpretation: Positive for: normal sinsus rhythm, NS ST wave abnormalities Telemetry: normal sinus rhythm Echocardiogram: not performed A/P Assessment: Patient is a 66 y/o female with history of CAD s/p PCI to the LAD (2010, 2014), HTN, HLP, and DM, who presented to [facility] ER via EMS with complaints of chest pain. Symptoms were different that those noted in the past (with the interventions). No cardiac biomarker elevation has been noted, and no dynamic ST/T wave changes were noted. Compliance with medical therapy has been good. No new "stressors" for the patient. Several options were discussed with the patient. Option 1: Eleni MPI. Option 2: angiogram. Given a lack of symptoms, lack of ECG changes, and no biomarker elevation, would pursue the MPI testing. Patient was in agreement with these plans. Plan: (1) Would arrange for Eleni MPI (2) maintain therapy on ASA and Plavix for life with CAD/PCI history (3) Statins should continue for HLP history - maintain annual assessment of cholesterol and LFTs (4) Would continue ACEi therapy for HTN (5) Aggressive DM therapy to continue (6) Further recommendations after testing has been completed Patient and were in agreement with these plans.
[2016-12-21] MEDS ORDERED: ACETAMINOPHEN 500 MG TAB PO ONE (14:00)
[2016-12-21] MEDS ORDERED: REGADENOSON 0.4 MG/5 ML SYR IVP ONE (14:16)
--- NOTE | 2016-12-21 15:08 | CPR ---
[f rep st] NONINVASIVE CARDIAC PROCEDURE REPORT DATE OF PROCEDURE: 12/21/2016 STUDY PERFORMED: Nuclear Lexiscan stress test. REASON FOR TEST: Chest discomfort. DETAILS OF PROCEDURE: Resting EKG shows a regular sinus rhythm with a rate of 64. There are no isc hemic changes noted. Resting blood pressure 134/90, oxygen saturation 92%. She is asymptomatic. Stress portion: Lexiscan was injected rapidly followed by saline flush. Cardiolite was injected fo llowed by saline flush per protocol. She did have shortness of breath after the injection and notic ed some discomfort in her jaw. Blood pressure 156/80. Peak heart rate 98, oxygen saturation 99%. T here were no EKG changes. Recovery: Final blood pressure was 160/98, oxygen saturation 90%, heart rate 93, shortness of breat h had improved. Caffeine was given during recovery. At this time, she is stable to proceed with jorge marie. /[id number]/MODL
[2016-12-21 15:56] VITALS: BP 140/86; PULSE 70; RESP 18; O2SAT 95
[2016-12-21] MEDS ORDERED: ROSUVASTATIN CALCIUM 20 MG TAB PO SCH (21:00)
[2016-12-21] MEDS ORDERED: LISINOPRIL 10 MG TAB PO SCH (21:00)
--- NOTE | 2016-12-21 21:00 | GDS ---
[f rep st] DISCHARGE SUMMARY DISCHARGE DIAGNOSES: 1. Chest pain, most likely noncardiac. 2. History of coronary artery disease. 3. Type 2 diabetes. 4. Hypertension. 5. Depression and anxiety. HISTORY: This is a 66-year-old female with a history of coronary artery disease. She presented wit h substernal chest pain that lasted about 2 hours. HOSPITAL COURSE: Patient was admitted. Cardiac enzymes were negative x2. Cardiology was consulted . Stress test was performed after 2 negative troponins. There was possibly some decreased uptake i n the left ventricular apex, but that could be thinning versus an apical infarct, but no ischemia. She was chest pain free, and she was discharged home to follow up with her primary conservation educator. /[id number]/MODL
== END 2016-12-21 16:01 | disposition home or self-care (01) ==
LOC: EDUNIT# → F1N 04:45
PROVIDERS: ADMIT Internal Medicine; ATTEND Internal Medicine
DX: R07.89 Other chest pain (principal); I25.10 Atherosclerotic heart disease of native coronary artery without angina pectoris; I10 Essential (primary) hypertension; E78.5 Hyperlipidemia, unspecified; E11.9 Type 2 diabetes mellitus without complications; Z95.5 Presence of coronary angioplasty implant and graft; F41.8 Other specified anxiety disorders
CPT/HCPCS: 78452; 93005; 93017; 93306; A9500; G0378; J2785

== ENCOUNTER 2017-01-26 21:47 | Observation (INO) | payer MEDICAID ==
--- NOTE | 2017-01-26 22:12 | CPEKG ---
Heart Rate: 74 RR Interval: 811 P-R Interval: 168 QRSD Interval: 98 QT Interval: 432 QTC Interval: 480 P [place]: 58 QRS [place]: -15 T Wave [place]: 81 EKG Severity - OTHERWISE NORMAL ECG - EKG Impression: SINUS RHYTHM EKG Impression: BORDERLINE LEFT AXIS DEVIATION Electronically Signed By: Hemanth Sweeney 27-Jan-2017 05:57:08
[2017-01-26 22:34] LABS: % IMMATURE GRANULYOCYTES 0.2 % (0.0-1.1); ABSOLUTE IMMATURE GRANULOCYTES 0.01 10^3/uL (0.00-0.10); ADD DIFF? NO; ADD MORPH? NO; ADD SCAN? NO; ATYPICAL LYMPHOCYTE FLAG 10 (0-99); FRAGMENT RBC FLAG 0 (0-99); HEMATOCRIT 41.3 % (38.0-47.0); LEFT SHIFT FLG 0 (0-99); LIPEMIA HEMOLYSIS FLAG 90 (0-99); MEAN CELL HEMOGLOBIN CONCENTR. 33.9 g/dL (32.4-36.7); MEAN CELL VOLUME 88.4 fL (81.5-99.8); MEAN PLATELET VOLUME 9.5 fL (8.7-11.7); PLATELET CLUMPS FLAG 0 (0-99); PLATELET COUNT 212 10^3/uL (150-400); RED BLOOD CELL COUNT 4.67 10^6/uL (4.18-5.33); RED CELL DISTRIBUTION WIDTH 13.1 % (11.5-15.2)
[2017-01-26 22:46] LABS: ANION GAP 10 mEq/L (8-16); CALCIUM 9.3 mg/dL (8.5-10.4); CARBON DIOXIDE 20 mEq/l (22-31); CHLORIDE 108 mEq/L (97-110); CREATININE 0.9 mg/dL (0.6-1.0); GLOMERULAR FILTRATION RATE > 60; GLUCOSE 158 mg/dL (70-100); POTASSIUM 4.2 mEq/L (3.5-5.2); SODIUM 138 mEq/L (134-144)
[2017-01-26 22:57] LABS: TROPONIN I < 0.012 ng/mL (0-0.034)
--- NOTE | 2017-01-26 23:22 | EDPHY ---
H & P Stated Complaint: CP since radiates to boths sides and neck, diaphoretic Time Seen by Provider: 01/26/17 23:01 HPI/ROS: Chief Complaint: Chest pain HPI: 66-year-old woman with past medical history coronary artery disease status post stenting in 1999 11 and again in 2014. Patient had chest tightness for about 45 minutes Saturday morning. Saw her junior oracle dba, Dr. Dinero later that day and is scheduled for a catheterization Saturday. Patient states that approximately 915 tonight she had substernal chest pain that radiated to her shoulders and neck. This lasted about 10 minutes. Is described as a tightness. It was a 9/10. She did not have any shortness of breath. Did have some diaphoresis and some nausea. She was seen here for similar episode on the 21 of December. Denies any fevers or chills. No abdominal pain. No palpitations or syncope. ROS: 10 point Review of Systems is negative except as noted in the HPI. PMH: Coronary artery disease, type 2 diabetes, hypertension, hyperlipidemia, PTSD Social History: No smoking, rare alcohol, occasional marijuana Family History: Positive for coronary artery disease Physical Exam: Gen: Awake, Alert, No Distress HEENT: Nose: no rhinorrhea Eyes: PERRLA, EOMI Mouth: Moist mucosa Neck: Supple, no JVD Chest: nontender, lungs clear to auscultation Heart: S1, S2 normal, no murmur Abd: Soft, non-tender, no guarding Back: no CVA tenderness, no midline tenderness Ext: no edema, non-tender Skin: no rash Neuro: CN II-XII intact, Sensation grossly intact, Strength 5/5 in bilateral upper and lower extremities - Personal History Current Tetanus/Diphtheria Vaccine: Unsure Current Tetanus Diphtheria and Acellular Pertussis (TDAP): Unsure Tetanus Vaccine Date: 2011 - Medical/Surgical History Hx Asthma: No Hx Chronic Respiratory Disease: No Hx Diabetes: Yes Hx Cardiac Disease: Yes Hx Renal Disease: No Hx Cirrhosis: No Hx Alcoholism: No Hx HIV/AIDS: No Hx Splenectomy or Spleen Trauma: No Other PMH: hypercholesteremia, diabetes, PTSD, CAD, PCI with stents in 2010, HTN ; CSections x2;bilat Bunionectomies, and neuroma's removed bilat feet - Social History Smoking Status: Never smoked Constitutional: Initial Vital Signs Heart Rate 86 01/26/17 21:49 Respiratory Rate 18 01/26/17 21:49 Blood Pressure 138/89 H 01/26/17 21:49 O2 Sat (%) 96 01/26/17 21:49 O2 Delivery Mode Room Air Allergies/Adverse Reactions: morphine Allergy (Unknown, Verified 01/26/17 21:53) Vomiting Home Medications: Medication Instructions Recorded Lisinopril [Zestril 10 mg (*)] 10 mg PO HS 01/11/11 Aspirin [Aspirin 325 mg (*)] 325 mg PO DAILY 09/22/14 Cholecalciferol Vit D3 [Vitamin D3 1,000 units PO BID 09/22/14 (*)] Herbals/Supplements -Info Only 1 ea PO DAILY 09/22/14 [place]-3 Fatty Acids [Fish Oil 1000 1,000 mg PO HS 09/22/14 mg (*)] Propranolol HCl [Inderal 20mg (*)] 20 mg PO BID 09/22/14 Topiramate [Topamax 25MG (*)] 25 mg PO HS 09/22/14 Vitamin B Complex [B Complex] 1 each PO DAILY 09/22/14 metFORMIN HCL [Glucophage 500 mg 1,000 mg PO DAILY18 09/22/14 (*)] Clopidogrel Bisulfate [Plavix (*)] 75 mg PO DAILY #30 tab 09/23/14 Nitroglycerin [Nitrostat 0.4 mg 0.4 mg SL PRN PRN #1 btl 09/23/14 (*)] Venlafaxine Xr [Effexor Xr] 150 mg PO DAILY 09/23/14 buPROPion SR [Wellbutrin 100mg SR 300 mg PO DAILY 09/23/14 (*)] Rosuvastatin Calcium [Crestor 20mg 20 mg PO HS 12/21/16 (*)] Topiramate [Topamax 25MG (*)] 75 mg PO DAILY 12/21/16 buPROPion SR [Wellbutrin 100mg SR 100 mg PO HS 12/21/16 (*)] Ranitidine HCl 01/26/17 Medical Decision Making - Diagnostics EKG Interpretation: ECG time 8:28 p.m., sinus rhythm with a rate of 74, borderline left axis deviation, normal intervals, no acute ST or T-wave changes. This is unchanged from her prior ECG from 12/21/2016 ED Course/Re-evaluation: [age] with history of coronary artery disease with substernal chest pain concerning for cardiac cause at 9:50 a.m. this evening. Patient is pain free now. She is scheduled for catheterization Saturday morning. This is her 2nd episode this week. She will require admission for further evaluation. This troponin is negative. Patient is comfortable no complaints at this time. - Data Points Laboratory Results: Laboratory Results 01/26/17 22:30 01/26/17 22:30 01/26/17 01/26/17 22:30 22:30 WBC 5.62 10^3/uL 10^3/uL (3.80-9.50) RBC 4.67 10^6/uL 10^6/uL (4.18-5.33) Hgb 14.0 g/dL g/dL (12.6-16.3) Hct 41.3 % % (38.0-47.0) MCV 88.4 fL fL (81.5-99.8) MCH 30.0 pg pg (27.9-34.1) MCHC 33.9 g/dL g/dL (32.4-36.7) RDW 13.1 % % (11.5-15.2) Plt Count 212 10^3/uL 10^3/uL (150-400) MPV 9.5 fL fL (8.7-11.7) Neut % (Auto) 60.4 % % (39.3-74.2) Lymph % (Auto) 28.3 % % (15.0-45.0) [place] % (Auto) 6.6 % % (4.5-13.0) Eos % (Auto) 4.1 % % (0.6-7.6) Baso % (Auto) 0.4 % % (0.3-1.7) Nucleat RBC Rel Count 0.0 % % (0.0-0.2) Absolute Neuts (auto) 3.40 10^3/uL 10^3/uL (1.70-6.50) Absolute Lymphs (auto) 1.59 10^3/uL 10^3/uL (1.00-3.00) Absolute Monos (auto) 0.37 10^3/uL 10^3/uL (0.30-0.80) Absolute Eos (auto) 0.23 10^3/uL 10^3/uL (0.03-0.40) Absolute Basos (auto) 0.02 10^3/uL 10^3/uL (0.02-0.10) Absolute Nucleated RBC 0.00 10^3/uL 10^3/uL (0-0.01) Immature Gran % 0.2 % % (0.0-1.1) Immature Gran # 0.01 10^3/uL 10^3/uL (0.00-0.10) Sodium 138 mEq/L mEq/L (134-144) Potassium 4.2 mEq/L mEq/L (3.5-5.2) Chloride 108 mEq/L mEq/L (97-110) Carbon Dioxide 20 mEq/l L mEq/l (22-31) Anion Gap 10 mEq/L mEq/L (8-16) BUN 20 mg/dL mg/dL (7-23) Creatinine 0.9 mg/dL mg/dL (0.6-1.0) Estimated GFR > 60 Glucose 158 mg/dL H mg/dL (70-100) Calcium 9.3 mg/dL mg/dL (8.5-10.4) Troponin I < 0.012 ng/mL ng/mL (0-0.034) Departure - Departure Referrals: MADISON AZAR [Other] - As per Instructions
[2017-01-27] MEDS ORDERED: ONDANSETRON DISINTEGRATING 4 MG TAB PO PRN (00:46)
[2017-01-27] MEDS ORDERED: ALBUTEROL 3 ML DEYVIAL IH PRN (00:46)
[2017-01-27] MEDS ORDERED: LORazepam 0.5 MG TAB PO PRN (00:46)
[2017-01-27] MEDS ORDERED: ACETAMINOPHEN 325 MG TAB PO PRN (00:46)
[2017-01-27] MEDS ORDERED: ONDANSETRON 4 MG/2 ML VIAL IVP PRN (00:46)
--- NOTE | 2017-01-27 00:52 | PDGENHP ---
History and Physical - Chief Complaint chest pain - History of Present Illness Patient is a 66 year old female with DM2, CAD (previous PCI in 2010, 2014), HTN , HLD, and recent [facility] admission 1 month ago for chest pain who presents to the ED with complaint of chest pain. In her recent admission, she was ruled out for ACS with negative troponins, normal serial EKGs. NM stress test was performed and revealed no reversible ischemia, possible small infarct in her apex. She was discharged with outpatient cardiology follow up. Since discharge, she had not experienced any symptoms until 01/24. On that night, she was sleeping in bed when she woke suddently with substernal chest pain. Patient states she describes the pain as dull achy substernal pain that radiated into her bilateral arms and mid back. At that time, she did not want to seek emergent medical care, symptoms lasted about 30 minutes and the resolved. The following morning she was evaluated by her systems software engineer's office, and reports that she was scheduled to undergo an elective cardiac cath on 01/[address] Dinero. However, this evening while watching television, patient has another episode of chest pain, described as similar to above, associated with nausea, diaphoresis and dyspnea. Given this, she decided to come to the ED for further evaluation. Prior to leaving, she did take a full dose aspirin with improvement of her symptoms. On arrival to the ED patient was afebrile hemodynamically stable. Labs revealed normal CBC, BMP and negative troponin. EKG revealed normal sinus rhythm without obvious ischemic changes. She was admitted to the hospital service for further management. History Information - Allergies/Home Medication List Allergies/Adverse Reactions: morphine Allergy (Unknown, Verified 01/26/17 21:53) Vomiting Home Medications: Lisinopril [Zestril 10 mg (*)] 10 mg PO HS 01/11/11 [Last Taken 09/21/14] Aspirin [Aspirin 325 mg (*)] 325 mg PO DAILY 09/22/14 [Last Taken 09/22/14] Cholecalciferol Vit D3 [Vitamin D3 (*)] 1,000 units PO BID 09/22/14 [Last Taken Unknown] Herbals/Supplements -Info Only 1 ea PO DAILY 09/22/14 [Last Taken Unknown] [place]-3 Fatty Acids [Fish Oil 1000 mg (*)] 1,000 mg PO HS 09/22/14 [Last Taken Unknown] Propranolol HCl [Inderal 20mg (*)] 20 mg PO BID 09/22/14 [Last Taken 09/21/14] Topiramate [Topamax 25MG (*)] 25 mg PO HS 09/22/14 [Last Taken 09/21/14] Vitamin B Complex [B Complex] 1 each PO DAILY 09/22/14 [Last Taken Unknown] metFORMIN HCL [Glucophage 500 mg (*)] 1,000 mg PO DAILY18 09/22/14 [Last Taken 09/21/14] Venlafaxine Xr [Effexor Xr] 150 mg PO DAILY 09/23/14 [Last Taken Unknown] buPROPion SR [Wellbutrin 100mg SR (*)] 300 mg PO DAILY 09/23/14 [Last Taken Unknown] Rosuvastatin Calcium [Crestor 20mg (*)] 20 mg PO HS 12/21/16 [Last Taken Unknown ] Topiramate [Topamax 25MG (*)] 75 mg PO DAILY 12/21/16 [Last Taken Unknown] buPROPion SR [Wellbutrin 100mg SR (*)] 100 mg PO HS 12/21/16 [Last Taken Unknown ] Ranitidine HCl 01/26/17 [Last Taken Unknown] I have personally reviewed and updated: family history, medical history, social history, surgical history - Past Medical History coronary artery disease, diabetes type 2, hypertension, hyperlipidemia, psychiatric history Additional medical history: DM2, on insulin and metformin. Hypertension. Hyperlipidemia. CAD with PCI to LAD in 2010, repeat PCI to LAD in 2014; Lexiscan on 12/2016. Depression/anxiety/PTSD - Surgical History Reports: coronary stent Additional surgical history: x2. foot surgeries. wisdom teeth - Family History Positive for: hypertension Additional family history: Father: CAD. Mother: CVA - Social History Smoking Status: Never smoked Additional social history: Patient lives with her daughter and , is independent in ADLs. Review of Systems ROS: 10pt was reviewed & negative except for what was stated in HPI & below Physical Exam Temp Pulse Resp BP Pulse Ox 37 C 86 18 138/89 H 96 01/26/17 21:54 01/26/17 21:54 01/26/17 21:54 01/26/17 21:54 01/26/17 21:54 Constitutional: no apparent distress, appears nourished, not in pain Eyes: PERRL, anicteric sclera, EOMI Ears, Nose, Mouth, Throat: moist mucous membranes, hearing normal, ears appear normal, no oral mucosal ulcers Cardiovascular: regular rate and rhythym, no murmur, rub, or gallop, pulses symmetric bilaterally, No JVD, No edema Peripheral Pulses: 2+: dorsalis-pedis (R), dorsalis-pedis (L) Respiratory: no respiratory distress, no rales or rhonchi, clear to auscultation Gastrointestinal: normoactive bowel sounds, soft, non-tender abdomen, no palpable masses, No tenderness, No guarding, No rebound Genitourinary: no bladder fullness, no bladder tenderness Skin: warm, normal color, no rashes or abrasions, no fluctuance, no induration, No mottled Musculoskeletal: full muscle strength, no muscle tenderness, normal joint ROM, no joint effusions Neurologic: AAOx3, sensation intact bilaterally, CN II-XII Intact, No weakness, No numbness, No facial droop Psychiatric: interacting appropriately, not anxious, not encephalopathic, thought process linear Lab Data & Imaging Review 01/27/17 03:33 01/26/17 22:30 WBC 5.62 10^3/uL (3.80-9.50) 01/26/17 22:30 RBC 4.67 10^6/uL (4.18-5.33) 01/26/17 22:30 Hgb 14.0 g/dL (12.6-16.3) 01/26/17 22:30 Hct 41.3 % (38.0-47.0) 01/26/17 22:30 MCV 88.4 fL (81.5-99.8) 01/26/17 22:30 MCH 30.0 pg (27.9-34.1) 01/26/17 22:30 MCHC 33.9 g/dL (32.4-36.7) 01/26/17 22:30 RDW 13.1 % (11.5-15.2) 01/26/17 22:30 Plt Count 212 10^3/uL (150-400) 01/26/17 22:30 MPV 9.5 fL (8.7-11.7) 01/26/17 22:30 Neut % (Auto) 60.4 % (39.3-74.2) 01/26/17:30 Lymph % (Auto) 28.3 % (15.0-45.0) 01/26/17 22:30 [place] % (Auto) 6.6 % (4.5-13.0) 01/26/17 22:30 Eos % (Auto) 4.1 % (0.6-7.6) 01/26/17: Baso % (Auto) 0.4 % (0.3-1.7) 01/26/17:30 Nucleat RBC Rel Count 0.0 % (0.0-0.2) 01/26/17: Absolute Neuts (auto) 3.40 10^3/uL (1.70-6.50) 01/26/17:30 Absolute Lymphs (auto) 1.59 10^3/uL (1.00-3.00) 01/26/17 22:30 Absolute Monos (auto) 0.37 10^3/uL (0.30-0.80) 01/26/17 22:30 Absolute Eos (auto) 0.23 10^3/uL (0.03-0.40) 01/26/17:30 Absolute Basos (auto) 0.02 10^3/uL (0.02-0.10) 01/26/17:30 Absolute Nucleated RBC 0.00 10^3/uL (0-0.01) 01/26/17: Immature Gran % 0.2 % (0.0-1.1) 01/26/17:30 Immature Gran # 0.01 10^3/uL (0.00-0.10) 01/26/17 22:30 Sodium 138 mEq/L (134-144) 01/26/17 22:30 Potassium 4.2 mEq/L (3.5-5.2) 01/26/17:30 Chloride 108 mEq/L (97-110) 01/26/17:30 Carbon Dioxide 20 mEq/l (22-31) L 01/26/17 22:30 Anion Gap 10 mEq/L (8-16) 01/26/17 22:30 BUN 20 mg/dL (7-23) 01/26/17 22:30 Creatinine 0.9 mg/dL (0.6-1.0) 01/26/17 22:30 Estimated GFR > 60 01/26/17 22:30 Glucose 158 mg/dL (70-100) H 01/26/17 22:30 Calcium 9.3 mg/dL (8.5-10.4) 01/26/17 22:30 Troponin I < 0.012 ng/mL (0-0.034) 01/26/17 22:30 Visualized and Interpreted EKG results: Yes EKG Interpretation: Positive for: normal sinsus rhythm (no st/t wave abnormalities) Assessment & Plan Assessment: Patient is a 66-year-old female with a history of previous CAD with stenting, HTN, HLD and DM2 who presents to the ED with recurrent episodes of chest pain. [facility] admission in 12/2016 for similar presentation, however, given recurrence of symptoms, outpatient systems software engineer had scheduled patient for cardiac angiogram to further investigate. She was admitted this evening for recurrent chest pain symptoms. Plan: # chest pain Initial EKG and troponin are nonischemic; NM stress in 12/2016 did not show any reversible ischemic changes. However, patient states she was seen by Dr. Dinero on 01/25 and was recommended to undergo cardiac cath on 01/28. Given her recurrent cardiac symptoms, she is being admitted and will contact cardiology about inpatient cath. - cont to monitor troponins, serial ekgs - check TTE - f/u cardiology recommendations - resume home regimen # DM2 Glucose stable, will monitor FS and cover with sliding scale insulin # HTN BP stable, will resume home BP meds. # dispo: admit to observation status # gen: NPO DVT ppx: if staying for > 24 hours, start lovenox Full code
[2017-01-27] MEDS: OXYCODONE/APAP 5/325 TAB PO PRN ×2 (02:15→19:31)
[2017-01-27] MEDS ORDERED: OXYCODONE/APAP 5/325 TAB ONE (02:23)
[2017-01-27 04:01] LABS: % IMMATURE GRANULYOCYTES 0.4 % (0.0-1.1); ABSOLUTE IMMATURE GRANULOCYTES 0.02 10^3/uL (0.00-0.10); ADD DIFF? NO; ADD MORPH? NO; ADD SCAN? NO; ATYPICAL LYMPHOCYTE FLAG 10 (0-99); FRAGMENT RBC FLAG 0 (0-99); HEMATOCRIT 38.5 % (38.0-47.0); HEMOGLOBIN 12.9 g/dL (12.6-16.3); LEFT SHIFT FLG 0 (0-99); LIPEMIA HEMOLYSIS FLAG 80 (0-99); MEAN CELL HEMOGLOBIN 29.7 pg (27.9-34.1); MEAN CELL HEMOGLOBIN CONCENTR. 33.5 g/dL (32.4-36.7); MEAN CELL VOLUME 88.7 fL (81.5-99.8); MEAN PLATELET VOLUME 9.6 fL (8.7-11.7); PLATELET CLUMPS FLAG 0 (0-99); PLATELET COUNT 185 10^3/uL (150-400); RED BLOOD CELL COUNT 4.34 10^6/uL (4.18-5.33)
[2017-01-27 04:11] LABS: ANION GAP 8 mEq/L (8-16); CARBON DIOXIDE 19 mEq/l (22-31); CHLORIDE 112 mEq/L (97-110); CREATININE 0.8 mg/dL (0.6-1.0); GLOMERULAR FILTRATION RATE > 60; GLUCOSE 148 mg/dL (70-100); MAGNESIUM 2.2 mg/dL (1.6-2.3); POTASSIUM 4.1 mEq/L (3.5-5.2); SODIUM 139 mEq/L (134-144)
[2017-01-27 04:13] LABS: INR 1.06 (0.83-1.16); PROTIME(PATIENT) 13.7 SEC (12.0-15.0)
[2017-01-27 04:14] LABS: APTT 28.6 SEC (23.0-38.0)
[2017-01-27] MEDS ORDERED: D50W 25 GM/50 ML SYR IVP PRN (04:17)
[2017-01-27 04:23] LABS: CREATINE KINASE-MB FRACTION 0.36 ng/mL (0-3.19); TROPONIN I < 0.012 ng/mL (0-0.034)
[2017-01-27] MEDS: INSULIN LISPRO 100 UNIT/ML SC SCH ×3 (08:00→18:39)
[2017-01-27] MEDS ORDERED: NITROGLYCERIN 0.4 MG BTL SL PRN (11:03)
[2017-01-27] MEDS ORDERED: DIAZEPAM 5 MG TAB PO ONE (11:09)
[2017-01-27] MEDS ORDERED: diphenhydrAMINE 25 MG CAP PO ONE (11:09)
[2017-01-27] MEDS ORDERED: TEMAZEPAM 15 MG CAP PO PRN (11:09)
--- NOTE | 2017-01-27 11:09 | HOSPPROG ---
Hospitalist Progress Note Assessment/Plan: 66-year-old diabetes hypertension and dyslipidemia presents with recurrent chest pain. She had a negative workup a month ago here in the hospital and followed up with [facility]. The plan was for an elective angiogram on Saturday. However she had recurrent chest pain prior to admission. # chest pain: Discussed with Dr. Mcclelland who will determine whether she will get a angiogram today or tomorrow for further evaluation of her chest # diabetes: Will continue her usual insulin. # hypertension on lisinopril # dyslipidemia on statin Subjective: No chest pain over night, comfortable. Objective: Vital Signs Temp Pulse Resp BP Pulse Ox 36.4 C 64 10 L 126/66 H 94 01/27/17 08:00 01/27/17 08:00 01/27/17 08:00 01/27/17 08:00 01/27/17 08:00 Laboratory Results 01/27/17 03:33 01/27/17 03:33 PT 13.7 SEC (12.0-15.0) 01/27/17 03:33 INR 1.06 (0.83-1.16) 01/27/17 03:33 - Physical Exam Constitutional: no apparent distress, not in pain Eyes: PERRL Cardiovascular: regular rate and rhythym, no murmur, rub, or gallop, No edema Respiratory: no respiratory distress, no rales or rhonchi, clear to auscultation Gastrointestinal: normoactive bowel sounds, soft, non-tender abdomen Neurologic: AAOx3 ICD10 Worksheet Patient Problems: Problems Problem Status Onset Chest pain Acute
--- NOTE | 2017-01-27 11:21 | PDCARCONS ---
Cardiology Consult Reason for Consult: Chest pain Chief Complaint: Chest pain Requesting Physician: Enoch History of Present Illness: 66-year-old female well known to me history of coronary artery disease multiple PCIs of the LAD in the setting of hypertension hyperlipidemia and diabetes. Patient presents with recurrent chest discomfort. She was last in the hospital in early December. At that time she ruled out for myocardial infarction by serial enzymes. She was seen in the office with recurrent symptoms and was scheduled for diagnostic angiogram tomorrow. She presented now with resting pain. Cardiac risk factors include hypertension hyperlipidemia diabetes known coronary disease. Cardiac review of systems is negative for PND orthopnea palpitations syncope near syncope. History Information - Allergies/Home Medication List Allergies/Adverse Reactions: morphine Allergy (Unknown, Verified 01/26/17 21:53) Vomiting Home Medications: Lisinopril [Zestril 10 mg (*)] 10 mg PO HS 01/11/11 [Last Taken 01/25/17] Aspirin [Aspirin 325 mg (*)] 325 mg PO DAILY 09/22/14 [Last Taken 01/26/17] Cholecalciferol Vit D3 [Vitamin D3 (*)] 1,000 units PO BID 09/22/14 [Last Taken 01/26/17] Herbals/Supplements -Info Only 1 ea PO DAILY 09/22/14 [Last Taken Unknown] [place]-3 Fatty Acids [Fish Oil 1000 mg (*)] 1,000 mg PO HS 09/22/14 [Last Taken 01/25/17] Propranolol HCl [Inderal 20mg (*)] 20 mg PO BID 09/22/14 [Last Taken 01/26/17] Topiramate [Topamax 25MG (*)] 25 mg PO HS 09/22/14 [Last Taken 01/25/17] Vitamin B Complex [B Complex] 1 each PO DAILY 09/22/14 [Last Taken 01/26/17] metFORMIN HCL [Glucophage 500 mg (*)] 1,000 mg PO DAILY18 09/22/14 [Last Taken 01/25/17] Venlafaxine Xr [Effexor Xr] 150 mg PO DAILY 09/23/14 [Last Taken 01/26/17] buPROPion SR [Wellbutrin 100mg SR (*)] 300 mg PO DAILY 09/23/14 [Last Taken 06/04] Rosuvastatin Calcium [Crestor 20mg (*)] 20 mg PO HS 12/21/16 [Last Taken ] Topiramate [Topamax 25MG (*)] 50 mg PO DAILY 12/21/16 [Last Taken 01/26/17] buPROPion SR [Wellbutrin 100mg SR (*)] 100 mg PO HS 12/21/16 [Last Taken ] Amoxicillin Trihydrate [Amoxicillin] 500 mg PO Q12H 01/27/17 [Last Taken ] Hydrocodone/APAP 5/325 [[place] 5/325 (*)] 0.5 - 1 tab PO BID PRN 01/27/17 [Last Taken 01/26/17] Insulin Detemir [Levemir Flextouch] 27 unit SQ HS 01/27/17 [Last Taken 01/25/17] Ranitidine HCl 150 mg PO BID 01/27/17 [Last Taken 01/26/17] I have personally reviewed and updated: family history, medical history, social history, surgical history - Past Medical History coronary artery disease - Social History Smoking Status: Never smoked Cardiac History - Cardiac History Past Cardiac History: CAD, PCI Cardiac Risk Factors: hypertension (>140/90), lipidemia, diabetes mellitus Timing/Duration: Days Severity: moderate Severity Scale: 6 Location: substernal Activities at Onset: rest CRISTI Risk Evaluation age greater or equal to 65: no greater or equal to 3 CAD risk factors: yes known CAD(stenosis greater or eqaul to 50%): yes ASA use in past 7 days: yes severe angina(greater or equal to 2 episodes in 24hrs): yes EKG ST changes greater or equal to 0.5mm: no positive cardiac marker: no Total Score: 4 CRISTI Score: 19.9% risk Physical Exam Temp Pulse Resp BP Pulse Ox 36.4 C 64 10 L 126/66 H 94 01/27/17 08:00 01/27/17 08:00 01/27/17 08:00 01/27/17 08:00 01/27/17 08:00 Constitutional: no apparent distress, appears nourished Eyes: PERRL, anicteric sclera Ears, Nose, Mouth, Throat: moist mucous membranes Cardiovascular: regular rate and rhythym, no murmur, rub, or gallop, No JVD Peripheral Pulses: 1+: carotid (R), carotid (L), femoral (R), femoral (L), dorsalis-pedis (R), dorsalis-pedis (L) Respiratory: no respiratory distress, no rales or rhonchi Gastrointestinal: normoactive bowel sounds, soft, non-tender abdomen Genitourinary: no bladder fullness Skin: warm, normal color Musculoskeletal: full muscle strength, no muscle tenderness Neurologic: AAOx3, sensation intact bilaterally, No weakness Psychiatric: interacting appropriately, not anxious Lymph, Heme, Immunologic: no cervical LAD, no supraclavicular LAD Lab and Imaging 01/27/17 03:33 01/27/17 03:33 WBC 5.36 10^3/uL (3.80-9.50) 01/27/17 03:33 RBC 4.34 10^6/uL (4.18-5.33) 01/27/17 03:33 Hgb 12.9 g/dL (12.6-16.3) 01/27/17 03:33 Hct 38.5 % (38.0-47.0) 01/27/17 03:33 MCV 88.7 fL (81.5-99.8) 01/27/17 03:33 MCH 29.7 pg (27.9-34.1) 01/27/17 03:33 MCHC 33.5 g/dL (32.4-36.7) 01/27/17 03:33 RDW 13.0 % (11.5-15.2) 01/27/17 03:33 Plt Count 185 10^3/uL (150-400) 01/27/17 03:33 MPV 9.6 fL (8.7-11.7) 01/27/17 03:33 Neut % (Auto) 61.3 % (39.3-74.2) 01/27/17 03:33 Lymph % (Auto) 28.9 % (15.0-45.0) 01/27/17 03:33 [place] % (Auto) 5.8 % (4.5-13.0) 01/27/17 03:33 Eos % (Auto) 3.2 % (0.6-7.6) 01/27/17 03:33 Baso % (Auto) 0.4 % (0.3-1.7) 01/27/17 03:33 Nucleat RBC Rel Count 0.0 % (0.0-0.2) 01/27/17 03:33 Absolute Neuts (auto) 3.29 10^3/uL (1.70-6.50) 01/27/17 03:33 Absolute Lymphs (auto) 1.55 10^3/uL (1.00-3.00) 01/27/17 03:33 Absolute Monos (auto) 0.31 10^3/uL (0.30-0.80) 01/27/17 03:33 Absolute Eos (auto) 0.17 10^3/uL (0.03-0.40) 01/27/17 03:33 Absolute Basos (auto) 0.02 10^3/uL (0.02-0.10) 01/27/17 03:33 Absolute Nucleated RBC 0.00 10^3/uL (0-0.01) 01/27/17 03:33 Immature Gran % 0.4 % (0.0-1.1) 01/27/17 03:33 Immature Gran # 0.02 10^3/uL (0.00-0.10) 01/27/17 03:33 PT 13.7 SEC (12.0-15.0) 01/27/17 03:33 INR 1.06 (0.83-1.16) 01/27/17 03:33 APTT 28.6 SEC (23.0-38.0) 01/27/17 03:33 Sodium 139 mEq/L (134-144) 01/27/17 03:33 Potassium 4.1 mEq/L (3.5-5.2) 01/27/17 03:33 Chloride 112 mEq/L (97-110) H 01/27/17 03:33 Carbon Dioxide 19 mEq/l (22-31) L 01/27/17 03:33 Anion Gap 8 mEq/L (8-16) 01/27/17 03:33 BUN 20 mg/dL (7-23) 01/27/17 03:33 Creatinine 0.8 mg/dL (0.6-1.0) 01/27/17 03:33 Estimated GFR > 60 01/27/17 03:33 Glucose 148 mg/dL (70-100) H 01/27/17 03:33 POC Glucose 126 mg/dL (70-100) H 01/27/17 09:56 Calcium 9.0 mg/dL (8.5-10.4) 01/27/17 03:33 Magnesium 2.2 mg/dL (1.6-2.3) 01/27/17 03:33 CK-MB (CK-2) Fraction 0.36 ng/mL (0-3.19) 01/27/17 03:33 Troponin I < 0.012 ng/mL (0-0.034) 01/27/17 03:33 Visualized and Interpreted Chest x-ray results: Yes Visualized and Interpreted imaging results: Yes Visualized and Interpreted EKG results: Yes A/P Assessment: Impression: 66-year-old female known coronary artery disease history of multiple LAD PCIs in the setting of hypertension hyperlipidemia and diabetes presenting with recurrent resting substernal chest pressure. Plan for diagnostic angiogram for risk stratification with an eye towards interventions. Risks and benefits of this approach were discussed with the patient will proceed. Radial artery approach recommended to reduce bleeding risk. Plan: 1. Diagnostic angiogram. 2. Continue aggressive secondary prevention. Past Medical History - Personal History Current Tetanus/Diphtheria Vaccine: Unsure Current Tetanus Diphtheria and Acellular Pertussis (TDAP): Unsure Tetanus Vaccine Date: 2011 - Medical/Surgical History Hx Asthma: No Hx Chronic Respiratory Disease: No Hx Cardiac Disease: Yes Hx Diabetes: Yes Hx Renal Disease: No Hx Alcoholism: No Hx Cirrhosis: No Hx HIV/AIDS: No Hx Splenectomy or Spleen Trauma: No Other PMH: hypercholesteremia, diabetes type 2, PTSD, CAD, PCI with stents in 2010, 2014 to LAD, HTN; CSections x2;bilat Bunionectomies, and neuroma's removed bilat feet - Social History Smoking Status: Never smoked Review of Systems - Review of Systems Constitutional: denies: chills, fever EENTM: no symptoms reported Respiratory: no symptoms reported Cardiac: chest pain. denies: edema, irregular heart rate, lightheadedness, palpitations, syncope Gastrointestinal/Abdominal: no symptoms reported Genitourinary: no symptoms Musculoskelatal: no symptoms Skin: no symptoms Neurological: no symptoms Hematologic/Lymphatic: no symptoms reported
[2017-01-27] MEDS ORDERED: fentaNYL 100 MCG/2 ML INJ ONE (12:30)
[2017-01-27] MEDS ORDERED: LIDOCAINE 1% 300 MG/30 ML SDV ONE (12:30)
[2017-01-27] MEDS ORDERED: MIDAZOLAM 2 MG/2 ML VIAL ONE ×3 (12:30→13:42)
[2017-01-27] MEDS ORDERED: IOPAMIDOL (ISOVUE-370) 150 ML BTL IV ONE ×3 (12:31→13:48)
[2017-01-27] MEDS ORDERED: VERAPAMIL 5 MG/2 ML VIAL ONE (12:31)
[2017-01-27] MEDS ORDERED: HEPARIN 10,000 UNIT/10 ML MDV ONE (12:31)
[2017-01-27] MEDS ORDERED: D10W 250 ML PRN HYPOGLYCEMIA IV (13:30)
[2017-01-27] MEDS ORDERED: NITROGLYCERIN 1,500 MCG/15 ML VIAL MISC ONE (13:47)
[2017-01-27] MEDS ORDERED: ASPIRIN 325 MG TAB ONE (13:51)
[2017-01-27] MEDS ORDERED: CLOPIDOGREL BISULFATE 75 MG TAB ONE (13:51)
[2017-01-27] MEDS ORDERED: ATROPINE SULFATE 1 MG/10 ML SYR IVP PRN (13:57)
--- NOTE | 2017-01-27 14:02 | PDDXCAT ---
Diagnostic Cath Note - . Date: 01/27/17 Director Of Software Development: Denis Indication: CCC Class III and IV angina on medical treatment - Procedure Access: left wrist Procedure: left heart catheterization, coronary angiography, left ventriculogram - Materials Left Heart Cath size: 4F Left Heart Cath materials: standard multipack (JL4, JR4, pigtail) - Findings-Left Heart Catheterization LM: Unobstructed LAD: 85% stenosis proximal to the previous site of stenting. LCX: unobstructed RCA: Dominant: Unobstructed EDP: 15 mm of mercury LVEF: 65 percent Wall motion: Normal Complications: None Estimated blood loss: <50ml Closure method: TR Band Assessment: 1. Crescendo angina with 85% stenosis of the LAD proximal to site of prior stenting. 2. Preserved LV systolic function. Plan: Ad Hoc PCI of the LAD Intervention: Procedure: Direct stenting of the LAD. After reviewing diagnostic angiograms it was elected to proceed with ad Hoc PCI. Patient was anticoagulated with heparin. Therapeutic ACT was confirmed. Using a 6 [place] JL4 guiding catheter the left main coronary was selectively intubated. Guiding shots were performed. Using a 0.014 luge wire the LAD stenosis was crossed. It was primarily stented with a 4.0 x 16 mm synergy stent. Position was confirmed in two views and the stent was deployed using a single inflation. Repeat angiogram showed CRISTI grade 3 flow through the LAD. There was moderate plaque shift to the principal diagonal. A 0.014 cm RI wire was used to cross into the diagonal. Attempts at dilating the side branch were made but the balloon would not pass. Patient was administered intracoronary nitroglycerin with marked improvement in stenosis of the diagonal. It was elected to stop at this time. Wires were withdrawn. Final orthogonal angiograms were obtained. Final diagnosis: Successful primary stenting of the LAD with a 4.0 x 16 mm synergy stent. Plan: Continue aggressive secondary prevention with dual antiplatelet therapy. Patient Problems: Problems Problem Status Onset Status post insertion of drug-eluting stent into left anterior descending (LAD) artery Acute Coronary arteriosclerosis Acute Chest pain Acute
--- NOTE | 2017-01-27 14:38 | CPEKG ---
Heart Rate: 66 RR Interval: 909 P-R Interval: 168 QRSD Interval: 92 QT Interval: 460 QTC Interval: 482 P [place]: 46 QRS [place]: -15 T Wave [place]: 61 EKG Severity - OTHERWISE NORMAL ECG - EKG Impression: SINUS RHYTHM EKG Impression: BORDERLINE LEFT AXIS DEVIATION Electronically Signed By: Fabio Reno 27-Jan-2017 18:32:33
[2017-01-27] MEDS: HYDROCODONE/APAP 5/325 TAB PO PRN (14:48)
[2017-01-27] MEDS: TOPIRAMATE 25 MG TAB PO SCH (14:55)
[2017-01-27] MEDS: VENLAFAXINE XR 150 MG CAP PO SCH (14:55)
[2017-01-27] MEDS ORDERED: buPROPion SR 100 MG TAB PO SCH (21:00)
[2017-01-27] MEDS ORDERED: ROSUVASTATIN CALCIUM 20 MG TAB PO SCH (21:00)
[2017-01-27] MEDS ORDERED: INSULIN DETEMIR 27 UNIT SQ SCH (21:00)
[2017-01-27] MEDS ORDERED: NON-FORMULARY NEW DRUG (Ranitidine Hcl [Ranitidine Hcl] 150 MG) PO SCH (21:00)
[2017-01-27] MEDS ORDERED: TOPIRAMATE 25 MG TAB PO SCH (21:00)
[2017-01-27] MEDS ORDERED: INSULIN GLARGINE 100 UNITS/ML SYRINGE SC SCH (21:00)
[2017-01-27] MEDS ORDERED: OMEGA-3 FATTY ACIDS 1,000 MG CAP PO SCH (21:00)
[2017-01-27] MEDS ORDERED: LISINOPRIL 10 MG TAB PO SCH (21:00)
[2017-01-27] MEDS: FAMOTIDINE 20 MG TAB PO SCH (21:11)
[2017-01-27] MEDS: CHOLECALCIFEROL VIT D3 1,000 UNITS TAB PO SCH (21:11)
[2017-01-27] MEDS: PROPRANOLOL HCL 20 MG TAB PO SCH (21:12)
[2017-01-28 04:14] VITALS: O2SAT 98
[2017-01-28] MEDS: HYDROCODONE/APAP 5/325 TAB PO PRN (04:15)
[2017-01-28 05:07] LABS: % IMMATURE GRANULYOCYTES 0.2 % (0.0-1.1); ABSOLUTE IMMATURE GRANULOCYTES 0.01 10^3/uL (0.00-0.10); ADD DIFF? NO; ADD MORPH? NO; ADD SCAN? NO; ATYPICAL LYMPHOCYTE FLAG 10 (0-99); FRAGMENT RBC FLAG 0 (0-99); HEMATOCRIT 39.9 % (38.0-47.0); HEMOGLOBIN 13.1 g/dL (12.6-16.3); LEFT SHIFT FLG 0 (0-99); LIPEMIA HEMOLYSIS FLAG 80 (0-99); MEAN CELL HEMOGLOBIN 29.2 pg (27.9-34.1); MEAN CELL HEMOGLOBIN CONCENTR. 32.8 g/dL (32.4-36.7); MEAN CELL VOLUME 88.9 fL (81.5-99.8); MEAN PLATELET VOLUME 9.3 fL (8.7-11.7); PLATELET CLUMPS FLAG 0 (0-99); PLATELET COUNT 174 10^3/uL (150-400); RED BLOOD CELL COUNT 4.49 10^6/uL (4.18-5.33); RED CELL DISTRIBUTION WIDTH 12.9 % (11.5-15.2)
[2017-01-28 05:22] LABS: ALBUMIN 3.6 g/dL (3.5-5.0); ANION GAP 8 mEq/L (8-16); ASPARTATE AMINOTRANSFERASE 27 IU/L (14-46); BILIRUBIN,TOTAL 0.4 mg/dL (0.1-1.4); CALCIUM 9.2 mg/dL (8.5-10.4); CARBON DIOXIDE 22 mEq/l (22-31); CHLORIDE 110 mEq/L (97-110); CREATININE 0.9 mg/dL (0.6-1.0); GLOMERULAR FILTRATION RATE > 60; GLUCOSE 108 mg/dL (70-100); LACTATE DEHYDROGENASE 374 IU/L (313-618); MAGNESIUM 2.2 mg/dL (1.6-2.3); SODIUM 140 mEq/L (134-144)
[2017-01-28 07:53] VITALS: RESP 19; TEMP 98.2
[2017-01-28] MEDS: INSULIN LISPRO 100 UNIT/ML SC SCH (07:56)
--- NOTE | 2017-01-28 08:27 | CPEKG ---
Heart Rate: 67 RR Interval: 896 P-R Interval: 172 QRSD Interval: 92 QT Interval: 424 QTC Interval: 448 P [place]: 61 QRS [place]: -16 T Wave [place]: 78 EKG Severity - BORDERLINE ECG - EKG Impression: SINUS RHYTHM EKG Impression: normal ECG unchanged from January 27, 2017 Electronically Signed By: Oscar Barrios 28-Jan-2017 10:36:23
[2017-01-28] MEDS ORDERED: ASPIRIN 325 MG TAB PO SCH (09:00)
[2017-01-28] MEDS ORDERED: buPROPion SR 100 MG TAB PO SCH (09:00)
[2017-01-28] MEDS ORDERED: VITAMIN B COMPLEX 1 EA CAP/TAB PO SCH (09:00)
[2017-01-28] MEDS ORDERED: CLOPIDOGREL BISULFATE 75 MG TAB PO SCH (09:00)
[2017-01-28] MEDS: PROPRANOLOL HCL 20 MG TAB PO SCH (09:19)
[2017-01-28] MEDS: CHOLECALCIFEROL VIT D3 1,000 UNITS TAB PO SCH (09:25)
[2017-01-28] MEDS: TOPIRAMATE 25 MG TAB PO SCH (09:26)
[2017-01-28] MEDS: VENLAFAXINE XR 150 MG CAP PO SCH (09:27)
[2017-01-28] MEDS: FAMOTIDINE 20 MG TAB PO SCH (09:27)
[2017-01-28 09:28] VITALS: BP 142/75; PULSE 72
--- NOTE | 2017-01-28 10:39 | PDCARPN ---
Cardiology Progress Note Assessment/Plan: Assessment/plan: 66-year-old female with history of previous LAD PCI. 1st in 2010, then in 2014. She has hypertension, diabetes, dyslipidemia. She was admitted early in the morning of 01/27 with accelerating angina. She had coronary angiogram with Dr. Barrios yesterday. Proximal LAD stenosis, prior to previously implanted stent, was treated with a single 4 x 16 mm synergy drug-eluting stent. Her ejection fraction is preserved. She had 2- troponins. 1. Coronary disease: As detailed above. She is on appropriate secondary prevention. Cardiac rehab consult. Check LDL. She wishes to follow up with Dr. Dinero. She understands the importance of uninterrupted dual antiplatelet therapy. 2. Hypertension: Overall well controlled. Continue outpatient medications. 3. Diabetes: She is on insulin. She understands the importance of continued efforts at weight loss intensified exercise. 4. Dyslipidemia: On Crestor. She may need an increase in dose. Check LDL cholesterol. From a cardiac standpoint she appears stable from discharge. Follow up with Dr. Dinero. Cardiac rehab consult. 01/28/17 10:37 Subjective: Rose has not had any chest discomfort or any other cardiovascular symptoms since her LAD stenting yesterday. She has ambulated to the bathroom. She does describe accelerating chest discomfort over the past several days prior to her admission. Reviewed/Discussed With: family, multidisciplinary team Objective: Vital Signs (8 Hrs) Temp Pulse Resp BP Pulse Ox 01/28/17 09:19 72 142/75 H 01/28/17 07:52 36.8 C 67 19 132/81 H 98 01/28/17 04:00 36.6 C 70 14 132/81 H 98 Intake/Output (24 Hrs) 01/27/17 01/28/17 01/29/17 05:59 05:59 05:59 Intake Total 650 Balance 650 Intake: Oral (ml) 650 Other: Weight 87.3 kg Number of Voids Toilet 1 1 Number of Stools Toilet 1 No acute distress. JVP less than 10. Regular rate and rhythm without murmur rub or gallop Lungs clear to auscultation bilaterally without wheezes rhonchi or rales Extremities warm well perfused without cyanosis clubbing or edema Left radial arteriotomy site is clean dry and intact. Normal radial pulses. Normal capillary refill in the lower left hand. Normal sensation of the left hand. Neuro alert and oriented x3 without gross focal neurologic deficits. Appropriate mood and affect Catheterization films reviewed from 01/27/2017: Proximal LAD stenosis prior to previously implanted stent. This was treated with direct stenting by Dr. Barrios. Preserved ejection fraction. Result Diagrams: 01/28/17 04:45 01/28/17 04:45 Cardiac Labs: Cardiac Lab Results (72 Hrs) 01/27/17 03:33 CK-MB (CK-2) Fraction 0.36 Troponin I < 0.012 EKG: Serial tracings reviewed. Normal sinus rhythm with anterior T-wave flattening. Echocardiogram: Echocardiogram reviewed: Normal LV systolic function without regional wall motion abnormalities. No significant valvular abnormalities ICD10 Worksheet Patient Problems: Problems Problem Status Onset Status post insertion of drug-eluting stent into left anterior descending (LAD) artery Acute Coronary arteriosclerosis Acute Chest pain Acute
--- NOTE | 2017-01-28 11:57 | GDS ---
[f rep st] DISCHARGE SUMMARY DIAGNOSES: 1. Coronary artery disease status post stent. 2. Diabetes. 3. Hypertension. 4. Dyslipidemia. CONSULTATIONS: Oscar Barrios MD. PROCEDURES DONE: Angiogram to the left wrist and left ventriculogram, 85% stenosis proximal to the previous site of stenting, status post stent to the left anterior descending with a Synergy stent. HOSPITAL COURSE: The patient is a 66-year-old, who came in with increasing anginal symptoms. She h ad a negative workup about a month prior to admission. She had recurrent chest pain and came back t o the hospital. She was admitted overnight. Her troponins were negative. Her EKG was nonischemic. 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 The above findings were noted, an d she underwent a stent placement of her LAD. Post procedure, she had no complications. She has bautista d no further chest pain and is ready to go home. She will continue her usual medications including Plavix. CONDITION ON DISCHARGE: Good. PHYSICAL EXAMINATION: VITAL SIGNS: Stable. She is pain free. HEART: Regular. LUNGS: Clear. E XTREMITIES: Wrist looks good. DISCHARGE MEDICATIONS: Please see discharge medication form. FOLLOWUP: She will follow up with Dr. Barrios as scheduled. Follow up with her PCP as needed. Total time spent on patient on day of discharge and coordination of care is 35 minutes. /[id number]/MODL
[2017-01-28 22:50] LABS: LOW DENSITY LIPOPROTEIN DIRECT 45 mg/dL (80-100)
== END 2017-01-28 11:09 | disposition home or self-care (01) ==
LOC: F2N 01-27 02:57
PROVIDERS: ADMIT Internal Medicine; ATTEND Internal Medicine
PROC: B2111ZZ Fluoroscopy of Multiple Coronary Arteries using Low Osmolar Contrast (ICD-10-PCS; principal; 2017-01-27)
PROC: 027034Z Dilation of Coronary Artery, One Artery with Drug-eluting Intraluminal Device, Percutaneous Approach (ICD-10-PCS; principal; 2017-01-27)
PROC: 4A023N7 Measurement of Cardiac Sampling and Pressure, Left Heart, Percutaneous Approach (ICD-10-PCS; principal; 2017-01-27)
PROC: B2151ZZ Fluoroscopy of Left Heart using Low Osmolar Contrast (ICD-10-PCS; principal; 2017-01-27)
DX: I25.10 Atherosclerotic heart disease of native coronary artery without angina pectoris (principal); I10 Essential (primary) hypertension; E11.9 Type 2 diabetes mellitus without complications; E78.5 Hyperlipidemia, unspecified; F43.10 Post-traumatic stress disorder, unspecified
CPT/HCPCS: 92928; 93005; 93458; C1725; C1769; C1887; G0378; C1874; C9600; J1644; J1815; J2250; J3010; Q9967

== ENCOUNTER 2017-03-26 00:16 | Observation (INO) | payer MEDICAID ==
--- NOTE | 2017-03-26 00:19 | EDPHY ---
H & P HPI/ROS: HPI CHIEF COMPLAINT: Chest pain HISTORY OF PRESENT ILLNESS: This patient very pleasant 66-year-old female, significant past medical history for coronary artery disease with multiple stents in her LAD, most recently had a stent placed in her LAD in January, significant history of hypertension, hyperlipidemia, insulin-dependent diabetes , presents emergency room with chest pain. She describes this pain as dull ache radiates to her back across her shoulder blades, jaw, left anterior chest. Nonexertional. At rest. Pain started approximately 1030 this evening. Progressively got worse. She took a full-dose aspirin prior to arrival also took 1 dose of nitroglycerin which did not relieve her chest pain. She now presents emergency room with ongoing chest pain. 01/26. Past Medical History: Coronary artery disease, hypertension, hyperlipidemia, diabetes, recent LAD stent placement in January of this year. Past Surgical History: PTCA Social History: Denies daily use drugs alcohol tobacco products. Family History: Noncontributory ROS REVIEW OF SYSTEMS: A comprehensive 10 point review of systems is otherwise negative aside from elements mentioned in the history of present illness. Exam Constitutional appears well, triage nursing summary reviewed, vital signs reviewed, awake/alert. Eyes normal conjunctivae and sclera, EOMI, PERRLA. HENT normal inspection, atraumatic, moist mucus membranes, no epistaxis, neck supple/ no meningismus, no raccoon eyes. Respiratory clear to auscultation bilaterally, normal breath sounds, no respiratory distress, no wheezing. Cardiovascular rate normal, regular rhythm, no murmur, no edema, distal pulses normal. Gastrointestinal soft, non-tender, no rebound, no guarding, normal bowel sounds, no distension, no pulsatile mass. Genitourinary no CVA tenderness. Musculoskeletal no midline vertebral tenderness, full range of motion, no calf swelling, no tenderness of extremities, no meningismus, good pulses, neurovascularly intact. Skin pink, warm, & dry, no rash, skin atraumatic. Neurologic awake, alert and oriented x 3, AAOx3, moves all 4 extremities equally, motor intact, sensory intact, CN II-XII intact, normal cerebellar, normal vision, normal speech. Psychiatric normal mood/affect. Heme/Lymph/Immune no lymphadenopathy. Differential diagnosis includes but is not limited to: ACS, atypical chest pain , pneumothorax, pneumonia, pulmonary embolism, aortic dissection, congestive heart failure, tumor, musculoskeletal pain, esophageal pain, GERD, peptic ulcer disease, pancreatitis Medical Decision Making: Plan for this patient full cardiac exercise specialist, IV establishment, EKG, troponin, rule out acute coronary syndrome, will give another dose of nitroglycerin to see if this improves her chest pain. Patient need to be admitted to the hospital given her cardiac risk factors. Re-evaluation: Patient's cardiac risk factors include the following hypertension, hyperlipidemia, insulin-dependent diabetes, coronary artery disease with stents. Recent stent placement in January. 1257AM: Chest pain has went to 2/10 from 01/26 with 1 dose of nitroglycerin here in the emergency room. 0145AM: Spoke with the hospitalist service they agree to admit this patient for chest pain ACS rule out. Here in emergency room the patient is now chest pain-free. EKG is nonischemic troponin is negative. However she has significant risk factors for acute coronary syndrome which include hypertension , hyperlipidemia insulin-dependent diabetes known coronary artery disease with multiple stents or recent stent last month. Patient need to be admitted back to the hospital service for further evaluation for cardiology to see. Source: Patient - Personal History Tetanus Vaccine Date: 2011 - Medical/Surgical History Hx Asthma: No Hx Chronic Respiratory Disease: No Hx Diabetes: Yes Hx Cardiac Disease: Yes Hx Renal Disease: No Hx Cirrhosis: No Hx Alcoholism: No Hx HIV/AIDS: No Hx Splenectomy or Spleen Trauma: No Other PMH: hypercholesteremia, diabetes type 2, PTSD, CAD, PCI with stents in 2010, 2014 to LAD, HTN; CSections x2;bilat Bunionectomies, and neuroma's removed bilat feet - Social History Smoking Status: Never smoked Constitutional: Initial Vital Signs Temperature (C) 36.6 C 03/26/17 00:16 Heart Rate 84 03/26/17 00:16 Respiratory Rate 20 03/26/17 00:16 Blood Pressure 135/105 H 03/26/17 00:16 O2 Sat (%) 96 03/26/17 00:16 O2 Delivery Mode Room Air Allergies/Adverse Reactions: morphine Allergy (Unknown, Verified 03/26/17 00:27) Vomiting Home Medications: Medication Instructions Recorded Lisinopril [Zestril 10 mg (*)] 10 mg PO HS 01/11/11 Aspirin [Aspirin 325 mg (*)] 325 mg PO DAILY 09/22/14 Cholecalciferol Vit D3 [Vitamin D3 1,000 units PO BID 09/22/14 (*)] Herbals/Supplements -Info Only 1 ea PO DAILY 09/22/14 [place]-3 Fatty Acids [Fish Oil 1000 1,000 mg PO HS 09/22/14 mg (*)] Propranolol HCl [Inderal 20mg (*)] 20 mg PO BID 09/22/14 Topiramate [Topamax 25MG (*)] 25 mg PO HS 09/22/14 Vitamin B Complex [B Complex] 1 each PO DAILY 09/22/14 Clopidogrel Bisulfate [Plavix (*)] 75 mg PO DAILY #30 tab 09/23/14 Venlafaxine Xr [Effexor Xr] 150 mg PO DAILY 09/23/14 buPROPion SR [Wellbutrin 100mg SR 300 mg PO DAILY 09/23/14 (*)] Rosuvastatin Calcium [Crestor 20mg 20 mg PO HS 12/21/16 (*)] Topiramate [Topamax 25MG (*)] 50 mg PO DAILY 12/21/16 buPROPion SR [Wellbutrin 100mg SR 100 mg PO HS 12/21/16 (*)] Hydrocodone/APAP 5/325 [[place] 0.5 - 1 tab PO BID PRN 01/27/17 5/325 (*)] Insulin Detemir [Levemir Flextouch] 27 unit SQ HS 01/27/17 Ranitidine HCl 150 mg PO BID PRN 01/27/17 metFORMIN HCL [Glucophage 500 mg 1,000 mg PO DAILY18 #1 tab 01/28/17 (*)] Nitroglycerin [Nitrostat 0.4 mg 0.4 mg SL PRN PRN #1 btl 03/26/17 (*)] clonazePAM [klonoPIN (*)] 1 mg PO DAILY PRN 03/26/17 Medical Decision Making - Data Points Laboratory Results: Laboratory Results 03/26/17 00:31 03/26/17 00:31 Medications Given: Discontinued Medications Aspirin Buffered (Aspirin Ec) 325 mg PO ONCALL ONE Stop: 03/26/17 10:20 Last Admin: 03/26/17 15:22 Dose: Not Given Bupropion HCl (Wellbutrin Sr) 300 mg PO DAILY JOSEFA Stop: 09/22/17 10:14 Last Admin: 03/26/17 15:07 Dose: 300 mg Clopidogrel Bisulfate (Plavix) 75 mg PO DAILY [facility] Stop: 09/22/17 10:14 Last Admin: 03/26/17 10:34 Dose: 75 mg Diazepam (Valium) 5 mg PO ONCALL ONE Stop: 03/26/17 10:20 Last Admin: 03/26/17 15:22 Dose: Not Given Diphenhydramine HCl (Benadryl) 25 mg PO ONCALL ONE Stop: 03/26/17 10:20 Last Admin: 03/26/17 15:23 Dose: Not Given Enoxaparin Sodium (Lovenox) 40 mg SC DAILY [facility] Stop: 09/22/17 08:59 Last Admin: 03/26/17 09:59 Dose: Not Given Sodium Chloride (Ns) 1,000 mls @ 0 mls/hr IV ONCE ONE; Wide Open PRN Reason: Protocol Stop: 03/26/17 00:26 Last Admin: 03/26/17 00:38 Dose: 1,000 mls Insulin Human Lispro (Humalog Lispro) 0 unit SC TIDMEAL [facility] PRN Reason: Protocol Stop: 09/22/17 07:59 Last Admin: 03/26/17 15:23 Dose: Not Given Nitroglycerin (Nitrostat) 0.4 mg SL Q5M PRN PRN Reason: Chest Pain Stop: 03/26/17 00:36 Last Admin: 03/26/17 00:40 Dose: 0.4 mg Topiramate (Topamax) 50 mg PO DAILY [facility] Stop: 09/22/17 10:14 Last Admin: 03/26/17 15:07 Dose: 50 mg Venlafaxine HCl (Effexor Xr) 150 mg PO DAILY [facility] Stop: 09/22/17 10:14 Last Admin: 03/26/17 15:08 Dose: 150 mg Departure - Departure Disposition: [facility] Acute Clinical Impression: Chest pain Qualifiers: Chest pain type: unspecified Qualified Code(s): R07.9 - Chest pain, unspecified Condition: Good
[2017-03-26] MEDS ORDERED: NITROGLYCERIN 0.4 MG BTL SL PRN ×3 (00:25→10:19)
[2017-03-26] MEDS ORDERED: NS 1,000 ML IV ONE (00:25)
--- NOTE | 2017-03-26 00:27 | CPEKG ---
Heart Rate: 73 RR Interval: 822 P-R Interval: 180 QRSD Interval: 96 QT Interval: 420 QTC Interval: 463 P [place]: 50 QRS [place]: -14 T Wave [place]: 71 EKG Severity - ABNORMAL ECG - EKG Impression: SINUS RHYTHM EKG Impression: PROBABLE LVH WITH SECONDARY REPOL ABNRM Electronically Signed By: Otto Mcclelland 28-Mar-2017 15:24:12
[2017-03-26] MEDS ORDERED: ACETAMINOPHEN 500 MG TAB ONE (00:52)
[2017-03-26 00:58] LABS: ALANINE AMINOTRANSFERASE 46 IU/L (9-52); ALBUMIN 4.3 g/dL (3.5-5.0); ALKALINE PHOSPHATASE 77 IU/L (38-126); ANION GAP 13 mEq/L (8-16); ASPARTATE AMINOTRANSFERASE 27 IU/L (14-46); BILIRUBIN,TOTAL 0.4 mg/dL (0.1-1.4); BILIRUBIN-CONJUGATED 0.3 mg/dL (0.0-0.5); BILIRUBIN-UNCONJUGATED 0.1 mg/dL (0.0-1.1); CALCIUM 9.4 mg/dL (8.5-10.4); CARBON DIOXIDE 22 mEq/l (22-31); CHLORIDE 109 mEq/L (97-110); CREATININE 0.9 mg/dL (0.6-1.0); GLOMERULAR FILTRATION RATE > 60; GLUCOSE 150 mg/dL (70-100); MAGNESIUM 2.1 mg/dL (1.6-2.3); SODIUM 144 mEq/L (134-144); TOTAL PROTEIN 6.6 g/dL (6.3-8.2)
[2017-03-26 01:00] LABS: % IMMATURE GRANULYOCYTES 0.4 % (0.0-1.1); ABSOLUTE IMMATURE GRANULOCYTES 0.02 10^3/uL (0.00-0.10); ADD DIFF? NO; ADD MORPH? NO; ADD SCAN? NO; ATYPICAL LYMPHOCYTE FLAG 0 (0-99); FRAGMENT RBC FLAG 0 (0-99); HEMATOCRIT 42.4 % (38.0-47.0); LEFT SHIFT FLG 0 (0-99); LIPEMIA HEMOLYSIS FLAG 80 (0-99); MEAN CELL HEMOGLOBIN 29.7 pg (27.9-34.1); MEAN PLATELET VOLUME 9.5 fL (8.7-11.7); PLATELET CLUMPS FLAG 20 (0-99); PLATELET COUNT 192 10^3/uL (150-400); RED BLOOD CELL COUNT 4.71 10^6/uL (4.18-5.33); RED CELL DISTRIBUTION WIDTH 12.5 % (11.5-15.2)
[2017-03-26 01:10] LABS: CREATINE KINASE-MB FRACTION 0.62 ng/mL (0-3.19); TROPONIN I < 0.012 ng/mL (0-0.034)
[2017-03-26 01:13] LABS: INR 1.07 (0.83-1.16); PROTIME(PATIENT) 13.8 SEC (12.0-15.0)
[2017-03-26 01:14] LABS: APTT 27.8 SEC (23.0-38.0)
[2017-03-26] MEDS ORDERED: ACETAMINOPHEN 325 MG TAB PO PRN ×2 (01:54→10:19)
[2017-03-26] MEDS ORDERED: ONDANSETRON 4 MG/2 ML VIAL IVP PRN (01:54)
[2017-03-26] MEDS ORDERED: ONDANSETRON DISINTEGRATING 4 MG TAB PO PRN (01:54)
--- NOTE | 2017-03-26 02:03 | PDGENHP ---
History and Physical - Chief Complaint Chest pain - History of Present Illness 66 yo F w/ hx of CAD and IDDM presents after episode of chest pain. Patient was getting ready for bed not exerting herself when at about 10 PM she experienced central chest pain with radiation to her neck and between her shoulder blades. She describes this is as similar to prior anginal episodes. Pain was 7/10 severity and lasted several hours until arrival to the ED and it was relieved by nitroglycerin SL. She felt diaphoretic and nauseous during the episode. History Information - Allergies/Home Medication List Allergies/Adverse Reactions: morphine Allergy (Unknown, Verified 03/26/17 00:27) Vomiting Home Medications: Lisinopril [Zestril 10 mg (*)] 10 mg PO HS 01/11/11 [Last Taken 01/25/17] Aspirin [Aspirin 325 mg (*)] 325 mg PO DAILY 09/22/14 [Last Taken 01/26/17] Cholecalciferol Vit D3 [Vitamin D3 (*)] 1,000 units PO BID 09/22/14 [Last Taken 01/26/17] Herbals/Supplements -Info Only 1 ea PO DAILY 09/22/14 [Last Taken Unknown] [place]-3 Fatty Acids [Fish Oil 1000 mg (*)] 1,000 mg PO HS 09/22/14 [Last Taken 01/25/17] Propranolol HCl [Inderal 20mg (*)] 20 mg PO BID 09/22/14 [Last Taken 01/26/17] Topiramate [Topamax 25MG (*)] 25 mg PO HS 09/22/14 [Last Taken 01/25/17] Vitamin B Complex [B Complex] 1 each PO DAILY 09/22/14 [Last Taken 01/26/17] Venlafaxine Xr [Effexor Xr] 150 mg PO DAILY 09/23/14 [Last Taken 01/26/17] buPROPion SR [Wellbutrin 100mg SR (*)] 300 mg PO DAILY 09/23/14 [Last Taken 06/04] Rosuvastatin Calcium [Crestor 20mg (*)] 20 mg PO HS 12/21/16 [Last Taken ] Topiramate [Topamax 25MG (*)] 50 mg PO DAILY 12/21/16 [Last Taken 01/26/17] buPROPion SR [Wellbutrin 100mg SR (*)] 100 mg PO HS 12/21/16 [Last Taken ] Hydrocodone/APAP 5/325 [[place] 5/325 (*)] 0.5 - 1 tab PO BID PRN 01/27/17 [Last Taken 01/26/17] Insulin Detemir [Levemir Flextouch] 27 unit SQ HS 01/27/17 [Last Taken 01/25/17] Ranitidine HCl 150 mg PO BID 01/27/17 [Last Taken 01/26/17] I have personally reviewed and updated: family history, medical history - Past Medical History coronary artery disease Additional medical history: DM2, on insulin and metformin. Hypertension. Hyperlipidemia. CAD with PCI to LAD in 2010, repeat PCI to LAD in 2014; Lexiscan on 12/2016. Depression/anxiety/PTSD - Surgical History Reports: coronary stent Additional surgical history: x2. foot surgeries. wisdom teeth - Family History Positive for: hypertension Additional family history: Father: CAD. Mother: CVA - Social History Smoking Status: Never smoked Additional social history: Patient lives with her daughter and , is independent in ADLs. Review of Systems ROS: 10pt was reviewed & negative except for what was stated in HPI & below Physical Exam Temp Pulse Resp BP Pulse Ox 36.6 C 76 18 130/68 H 96 03/26/17 00:16 03/26/17 00:55 03/26/17 00:55 03/26/17 00:55 03/26/17 00:55 Constitutional: no apparent distress, appears nourished Eyes: PERRL, EOMI Ears, Nose, Mouth, Throat: moist mucous membranes, no oral mucosal ulcers Cardiovascular: regular rate and rhythym, no murmur, rub, or gallop Respiratory: no respiratory distress, clear to auscultation Gastrointestinal: normoactive bowel sounds, soft, non-tender abdomen Skin: warm, no rashes or abrasions Musculoskeletal: full muscle strength, no muscle tenderness Neurologic: AAOx3, CN II-XII Intact Psychiatric: interacting appropriately, not anxious Lab Data & Imaging Review 03/26/17 00:31 03/26/17 00:31 WBC 5.22 10^3/uL (3.80-9.50) 03/26/17 00:31 RBC 4.71 10^6/uL (4.18-5.33) 03/26/17 00:31 Hgb 14.0 g/dL (12.6-16.3) 03/26/17 00: Hct 42.4 % (38.0-47.0) 03/26/17 00: MCV 90.0 fL (81.5-99.8) 03/26/17 00: MCH 29.7 pg (27.9-34.1) 03/26/17 00: MCHC 33.0 g/dL (32.4-36.7) 03/26/17 00: RDW 12.5 % (11.5-15.2) 03/26/17 00: Plt Count 192 10^3/uL (150-400) 03/26/17 00: MPV 9.5 fL (8.7-11.7) 03/26/17 00: Neut % (Auto) 60.3 % (39.3-74.2) 03/26/17 00: Lymph % (Auto) 27.8 % (15.0-45.0) 03/26/17 00: [place] % (Auto) 7.1 % (4.5-13.0) 03/26/17 00: Eos % (Auto) 4.0 % (0.6-7.6) 03/26/17 00: Baso % (Auto) 0.4 % (0.3-1.7) 03/26/17 00: Nucleat RBC Rel Count 0.0 % (0.0-0.2) 03/26/17 00: Absolute Neuts (auto) 3.15 10^3/uL (1.70-6.50) 03/26/17 00: Absolute Lymphs (auto) 1.45 10^3/uL (1.00-3.00) 03/26/17 00: Absolute Monos (auto) 0.37 10^3/uL (0.30-0.80) 03/26/17 00: Absolute Eos (auto) 0.21 10^3/uL (0.03-0.40) 03/26/17 00: Absolute Basos (auto) 0.02 10^3/uL (0.02-0.10) 03/26/17 00:31 Absolute Nucleated RBC 0.00 10^3/uL (0-0.01) 03/26/17 00:31 Immature Gran % 0.4 % (0.0-1.1) 03/26/17 00: Immature Gran # 0.02 10^3/uL (0.00-0.10) 03/26/17 00:31 PT 13.8 SEC (12.0-15.0) 03/26/17 00:31 INR 1.07 (0.83-1.16) 03/26/17 00:31 APTT 27.8 SEC (23.0-38.0) 03/26/17 00:31 D-Dimer < 0.27 ug/mLFEU (0.00-0.50) 03/26/17 00:31 Sodium 144 mEq/L (134-144) 03/26/17 00:31 Potassium 4.0 mEq/L (3.5-5.2) 03/26/17 00:31 Chloride 109 mEq/L (97-110) 03/26/17 00:31 Carbon Dioxide 22 mEq/l (22-31) 03/26/17 00:31 Anion Gap 13 mEq/L (8-16) 03/26/17 00:31 BUN 21 mg/dL (7-23) 03/26/17 00:31 Creatinine 0.9 mg/dL (0.6-1.0) 03/26/17 00:31 Estimated GFR > 60 03/26/17 00: Glucose 150 mg/dL (70-100) H 03/26/17 00:31 Calcium 9.4 mg/dL (8.5-10.4) 03/26/17 00:31 Magnesium 2.1 mg/dL (1.6-2.3) 03/26/17 00:31 Total Bilirubin 0.4 mg/dL (0.1-1.4) 03/26/17 00:31 Conjugated Bilirubin 0.3 mg/dL (0.0-0.5) 03/26/17 00: Unconjugated Bilirubin 0.1 mg/dL (0.0-1.1) 03/26/17 00:31 AST 27 IU/L (14-46) 03/26/17 00:31 ALT 46 IU/L (9-52) 03/26/17 00:31 Alkaline Phosphatase 77 IU/L (38-126) 03/26/17 00:31 Creatine Kinase 46 IU/L (0-156) 03/26/17 00:31 CK-MB (CK-2) Fraction 0.62 ng/mL (0-3.19) 03/26/17 00:31 Troponin I < 0.012 ng/mL (0-0.034) 03/26/17 00:31 NT-Pro-B Natriuret Pep 49 pg/mL (0-125) 03/26/17 00:31 Total Protein 6.6 g/dL (6.3-8.2) 03/26/17 00:31 Albumin 4.3 g/dL (3.5-5.0) 03/26/17 00:31 Lipase 335.0 IU/L (23-300) H 03/26/17 00:31 Visualized and Interpreted EKG results: Yes EKG Interpretation: Positive for: normal sinsus rhythm (No ischemic changes) Assessment & Plan Assessment: 66 yo F w/ hx of IDDM and CAD s/p stenting x3 to LAD (most recently 02/02) presents with typical chest pain. Plan: 1. Typical chest pain - Several typical features including location, associated diaphoresis, duration, and relief with nitroglycerin. However, episode was not associated with exertion. Initial troponin and ECG unremarkable. - Trend troponins - Monitor on telemetry - Cardiology consult 2. Hx of CAD - Patient has history of LAD stenting x3, most recently on 02/02. She claims compliance with DAPT. Also on BB, EPI, and statin. 3. IDDM - Home regimen consists of insulin detemir 27 u qHS + metformin. She took her insulin tonight. - Sliding scale for now 4. Depression/PTSD - On Wellbutrin and Effexor as outpatient. Diet - NPO Code - Full Ppx - LMWH Dispo - Admit to observation
[2017-03-26] MEDS ORDERED: D10W 250 ML PRN HYPOGLYCEMIA IV (02:30)
[2017-03-26 04:39] LABS: % IMMATURE GRANULYOCYTES 0.3 % (0.0-1.1); ABSOLUTE IMMATURE GRANULOCYTES 0.02 10^3/uL (0.00-0.10); ADD DIFF? NO; ADD MORPH? NO; ADD SCAN? NO; ATYPICAL LYMPHOCYTE FLAG 10 (0-99); FRAGMENT RBC FLAG 20 (0-99); HEMATOCRIT 37.2 % (38.0-47.0); HEMOGLOBIN 12.2 g/dL (12.6-16.3); LEFT SHIFT FLG 0 (0-99); LIPEMIA HEMOLYSIS FLAG 80 (0-99); MEAN CELL HEMOGLOBIN 29.7 pg (27.9-34.1); MEAN CELL HEMOGLOBIN CONCENTR. 32.8 g/dL (32.4-36.7); MEAN CELL VOLUME 90.5 fL (81.5-99.8); MEAN PLATELET VOLUME 9.8 fL (8.7-11.7); PLATELET CLUMPS FLAG 0 (0-99); PLATELET COUNT 180 10^3/uL (150-400); RED BLOOD CELL COUNT 4.11 10^6/uL (4.18-5.33); RED CELL DISTRIBUTION WIDTH 12.6 % (11.5-15.2)
[2017-03-26 04:53] LABS: ANION GAP 10 mEq/L (8-16); CALCIUM 8.7 mg/dL (8.5-10.4); CARBON DIOXIDE 20 mEq/l (22-31); CHLORIDE 113 mEq/L (97-110); CREATININE 0.8 mg/dL (0.6-1.0); GLOMERULAR FILTRATION RATE > 60; GLUCOSE 113 mg/dL (70-100); MAGNESIUM 1.9 mg/dL (1.6-2.3); POTASSIUM 3.8 mEq/L (3.5-5.2); SODIUM 143 mEq/L (134-144)
[2017-03-26 05:04] LABS: TROPONIN I < 0.012 ng/mL (0-0.034)
[2017-03-26] MEDS: INSULIN LISPRO 100 UNIT/ML SC SCH ×2 (07:09→15:23)
[2017-03-26 07:47] VITALS: RESP 14; TEMP 97.3; O2SAT 96
[2017-03-26] MEDS ORDERED: ENOXAPARIN 40 MG/0.4 ML SYR SC SCH (09:00)
[2017-03-26] MEDS ORDERED: HYDROCODONE/APAP 5/325 TAB PO PRN (10:04)
[2017-03-26] MEDS ORDERED: NON-FORMULARY NEW DRUG (Ranitidine Hcl [Ranitidine Hcl] 150 MG) PO PRN (10:04)
[2017-03-26] MEDS ORDERED: clonazePAM 1 MG TAB PO PRN (10:04)
[2017-03-26] MEDS ORDERED: VENLAFAXINE XR 150 MG CAP PO SCH (10:15)
[2017-03-26] MEDS ORDERED: CLOPIDOGREL BISULFATE 75 MG TAB PO SCH (10:15)
[2017-03-26] MEDS ORDERED: buPROPion SR 100 MG TAB PO SCH ×2 (10:15→21:00)
[2017-03-26] MEDS ORDERED: TOPIRAMATE 25 MG TAB PO SCH ×2 (10:15→21:00)
[2017-03-26] MEDS ORDERED: diphenhydrAMINE 25 MG CAP PO ONE (10:19)
[2017-03-26] MEDS ORDERED: DIAZEPAM 5 MG TAB PO ONE (10:19)
[2017-03-26] MEDS ORDERED: ASPIRIN EC 325 MG TAB PO ONE (10:19)
[2017-03-26] MEDS ORDERED: TEMAZEPAM 15 MG CAP PO PRN (10:19)
[2017-03-26] MEDS ORDERED: FAMOTIDINE 20 MG TAB PO PRN (10:20)
[2017-03-26] MEDS ORDERED: LIDOCAINE 1% 300 MG/30 ML SDV ONE (10:32)
[2017-03-26] MEDS ORDERED: VERAPAMIL 5 MG/2 ML VIAL ONE (10:33)
[2017-03-26] MEDS ORDERED: MIDAZOLAM 2 MG/2 ML VIAL ONE (10:33)
[2017-03-26] MEDS ORDERED: fentaNYL 100 MCG/2 ML INJ ONE (10:33)
[2017-03-26] MEDS ORDERED: HEPARIN 10,000 UNIT/10 ML MDV ONE (10:33)
[2017-03-26] MEDS ORDERED: IOPAMIDOL (ISOVUE-370) 150 ML BTL IV ONE (10:34)
--- NOTE | 2017-03-26 10:35 | PDCARCONS ---
Cardiology Consult Reason for Consult: Chest pain Chief Complaint: Chest pain Requesting Physician: Brenton History of Present Illness: 66-year-old female well known to me history of PCI stenting of the LAD most recently in January of this past year. She cardiac risk includes hypertension, hyperlipidemia, and diabetes. She woke last evening with substernal chest pressure and chest pain radiating into the jaw and back. She had a similar episode several weeks ago. She underwent a nuclear stress test 2 weeks ago which showed 8 minutes exercise time on a full Gurinder protocol with normal perfusion. She had no EKG changes concerning for ischemia. She had no symptoms. She has been doing relatively well working. She is doing no regular activity. She denies PND orthopnea. She has had no palpitations syncope or near syncope. Pain was relieved in the emergency department nitroglycerin. Pain started at 9 and finished around 1 o'clock in the evening. History Information - Allergies/Home Medication List Allergies/Adverse Reactions: morphine Allergy (Unknown, Verified 03/26/17 00:27) Vomiting Home Medications: Lisinopril [Zestril 10 mg (*)] 10 mg PO HS 01/11/11 [Last Taken 03/25/17] Aspirin [Aspirin 325 mg (*)] 325 mg PO DAILY 09/22/14 [Last Taken 03/25/17 21:00 ] Cholecalciferol Vit D3 [Vitamin D3 (*)] 1,000 units PO BID 09/22/14 [Last Taken 03/25/17 21:00] Herbals/Supplements -Info Only 1 ea PO DAILY 09/22/14 [Last Taken Unknown] [place]-3 Fatty Acids [Fish Oil 1000 mg (*)] 1,000 mg PO HS 09/22/14 [Last Taken 03/25/17] Propranolol HCl [Inderal 20mg (*)] 20 mg PO BID 09/22/14 [Last Taken 03/25/17 21 :00] Topiramate [Topamax 25MG (*)] 25 mg PO HS 09/22/14 [Last Taken 03/25/17] Vitamin B Complex [B Complex] 1 each PO DAILY 09/22/14 [Last Taken 03/25/17] Venlafaxine Xr [Effexor Xr] 150 mg PO DAILY 09/23/14 [Last Taken 03/25/17] buPROPion SR [Wellbutrin 100mg SR (*)] 300 mg PO DAILY 09/23/14 [Last Taken 03/04] Rosuvastatin Calcium [Crestor 20mg (*)] 20 mg PO HS 12/21/16 [Last Taken ] Topiramate [Topamax 25MG (*)] 50 mg PO DAILY 12/21/16 [Last Taken 03/25/17] buPROPion SR [Wellbutrin 100mg SR (*)] 100 mg PO HS 12/21/16 [Last Taken ] Hydrocodone/APAP 5/325 [[place] 5/325 (*)] 0.5 - 1 tab PO BID PRN 01/27/17 [Last Taken 01/26/17] Insulin Detemir [Levemir Flextouch] 27 unit SQ HS 01/27/17 [Last Taken 03/25/17] Ranitidine HCl 150 mg PO BID PRN 01/27/17 [Last Taken 3 Days Ago] clonazePAM [klonoPIN (*)] 1 mg PO DAILY PRN 03/26/17 [Last Taken 1 Month Ago] I have personally reviewed and updated: family history, medical history, social history, surgical history - Past Medical History coronary artery disease, diabetes type 2, hypertension, hyperlipidemia - Surgical History Reports: angioplasty, coronary stent - Family History Positive for: non-pertinent - Social History Smoking Status: Never smoked Cardiac History - Cardiac History Past Cardiac History: PCI Cardiac Risk Factors: hypertension (>140/90), lipidemia, diabetes mellitus Timing/Duration: Days Severity: severe Severity Scale: 10 Location: epigastric, shoulder, back Activities at Onset: rest Modifying Factors: improves with: nitroglycerin Associated Symptoms: denies symptoms CRISTI Risk Evaluation age greater or equal to 65: no greater or equal to 3 CAD risk factors: yes known CAD(stenosis greater or eqaul to 50%): yes ASA use in past 7 days: yes severe angina(greater or equal to 2 episodes in 24hrs): yes EKG ST changes greater or equal to 0.5mm: no positive cardiac marker: no Total Score: 4 CRISTI Score: 19.9% risk Physical Exam Temp Pulse Resp BP Pulse Ox 36.3 C 62 14 122/66 H 96 03/26/17 07:45 03/26/17 07:45 03/26/17 07:45 03/26/17 07:45 03/26/17 07:45 Constitutional: no apparent distress Eyes: PERRL, anicteric sclera Ears, Nose, Mouth, Throat: moist mucous membranes Cardiovascular: regular rate and rhythym, No no murmur, rub, or gallop, No systolic murmur, No JVD Peripheral Pulses: 1+: carotid (R), carotid (L), femoral (R), femoral (L), dorsalis-pedis (R), dorsalis-pedis (L) Respiratory: no respiratory distress, no rales or rhonchi Gastrointestinal: normoactive bowel sounds, soft, non-tender abdomen Genitourinary: no bladder fullness Skin: warm, normal color, no rashes or abrasions Musculoskeletal: full muscle strength, no muscle tenderness Neurologic: AAOx3, No weakness, No facial droop Psychiatric: interacting appropriately, not anxious Lymph, Heme, Immunologic: no cervical LAD, no supraclavicular LAD Lab and Imaging 03/26/17 03:38 03/26/17 03:38 WBC 6.23 10^3/uL (3.80-9.50) 03/26/17 03:38 RBC 4.11 10^6/uL (4.18-5.33) L 03/26/17 03:38 Hgb 12.2 g/dL (12.6-16.3) L 03/26/17 03:38 Hct 37.2 % (38.0-47.0) L 03/26/17 03:38 MCV 90.5 fL (81.5-99.8) 03/26/17 03:38 MCH 29.7 pg (27.9-34.1) 03/26/17 03:38 MCHC 32.8 g/dL (32.4-36.7) 03/26/17 03:38 RDW 12.6 % (11.5-15.2) 03/26/17 03:38 Plt Count 180 10^3/uL (150-400) 03/26/17 03:38 MPV 9.8 fL (8.7-11.7) 03/26/17 03:38 Neut % (Auto) 61.0 % (39.3-74.2) 03/26/17 03:38 Lymph % (Auto) 27.3 % (15.0-45.0) 03/26/17 03:38 Mcpherson % (Auto) 6.9 % (4.5-13.0) 03/26/17 03:38 Eos % (Auto) 4.0 % (0.6-7.6) 03/26/17 03:38 Baso % (Auto) 0.5 % (0.3-1.7) 03/26/17 03:38 Nucleat RBC Rel Count 0.0 % (0.0-0.2) 03/26/17 03:38 Absolute Neuts (auto) 3.80 10^3/uL (1.70-6.50) 03/26/17 03:38 Absolute Lymphs (auto) 1.70 10^3/uL (1.00-3.00) 03/26/17 03:38 Absolute Monos (auto) 0.43 10^3/uL (0.30-0.80) 03/26/17 03:38 Absolute Eos (auto) 0.25 10^3/uL (0.03-0.40) 03/26/17 03:38 Absolute Basos (auto) 0.03 10^3/uL (0.02-0.10) 03/26/17 03:38 Absolute Nucleated RBC 0.00 10^3/uL (0-0.01) 03/26/17 03:38 Immature Gran % 0.3 % (0.0-1.1) 03/26/17 03:38 Immature Gran # 0.02 10^3/uL (0.00-0.10) 03/26/17 03:38 PT 13.8 SEC (12.0-15.0) 03/26/17 00:31 INR 1.07 (0.83-1.16) 03/26/17 00:31 APTT 27.8 SEC (23.0-38.0) 03/26/17 00:31 D-Dimer < 0.27 ug/mLFEU (0.00-0.50) 03/26/17 00:31 Sodium 143 mEq/L (134-144) 03/26/17 03:38 Potassium 3.8 mEq/L (3.5-5.2) 03/26/17 03:38 Chloride 113 mEq/L (97-110) H 03/26/17 03:38 Carbon Dioxide 20 mEq/l (22-31) L 03/26/17 03:38 Anion Gap 10 mEq/L (8-16) 03/26/17 03:38 BUN 18 mg/dL (7-23) 03/26/17 03:38 Creatinine 0.8 mg/dL (0.6-1.0) 03/26/17 03:38 Estimated GFR > 60 03/26/17 03:38 Glucose 113 mg/dL (70-100) H 03/26/17 03:38 Calcium 8.7 mg/dL (8.5-10.4) 03/26/17 03:38 Magnesium 1.9 mg/dL (1.6-2.3) 03/26/17 03:38 Total Bilirubin 0.4 mg/dL (0.1-1.4) 03/26/17 00:31 Conjugated Bilirubin 0.3 mg/dL (0.0-0.5) 03/26/17 00:31 Unconjugated Bilirubin 0.1 mg/dL (0.0-1.1) 03/26/17 00:31 AST 27 IU/L (14-46) 03/26/17 00:31 ALT 46 IU/L (9-52) 03/26/17 00:31 Alkaline Phosphatase 77 IU/L (38-126) 03/26/17 00:31 Creatine Kinase 46 IU/L (0-156) 03/26/17 00:31 CK-MB (CK-2) Fraction 0.62 ng/mL (0-3.19) 03/26/17 00:31 Troponin I < 0.012 ng/mL (0-0.034) 03/26/17 03:38 NT-Pro-B Natriuret Pep 49 pg/mL (0-125) 03/26/17 00:31 Total Protein 6.6 g/dL (6.3-8.2) 03/26/17 00:31 Albumin 4.3 g/dL (3.5-5.0) 03/26/17 00:31 Lipase 335.0 IU/L (23-300) H 03/26/17 00:31 EKG additional interpertation: Sinus rhythm with no ST-T changes. A/P Assessment: Impression: Recurrent anginal-type chest pain associated with stable EKG, negative cardiac enzymes despite over 4 hours of pain, recent negative MPI. For diagnostic angiograms from January. At that time she had restenosis proximal to her LAD stents which was successfully stented. There was some plaque shift into a small diagonal. Otherwise excellent clinical result done from a left radial artery. Overall LV function is normal. She is on good medical therapy for secondary prevention. Coronary disease history clearly complicated by anxiety. Recommendations are for limited diagnostic angiogram to confirm stent patency without new complications. Aggressive continued secondary prevention with counseling. Plan: Diagnostic angiogram today. Past Medical History - Personal History Current Tetanus/Diphtheria Vaccine: Yes Tetanus Vaccine Date: 2011 - Medical/Surgical History Hx Asthma: No Hx Chronic Respiratory Disease: No Hx Cardiac Disease: Yes Hx Diabetes: Yes Hx Renal Disease: No Hx Alcoholism: No Hx Cirrhosis: No Hx HIV/AIDS: No Hx Splenectomy or Spleen Trauma: No Other PMH: hypercholesteremia, diabetes type 2, PTSD, CAD, PCI with stents in 2010, 2014, 2017 to LAD, HTN; CSections x2;bilat Bunionectomies, and neuroma's removed bilat feet - Social History Smoking Status: Never smoked Review of Systems - Review of Systems Constitutional: denies: chills, fever EENTM: no symptoms reported Respiratory: no symptoms reported Cardiac: chest pain. denies: edema, irregular heart rate, lightheadedness, palpitations, syncope Gastrointestinal/Abdominal: no symptoms reported Genitourinary: no symptoms Musculoskelatal: no symptoms Skin: no symptoms Neurological: no symptoms Hematologic/Lymphatic: no symptoms reported Immunologic/allergic: no symptoms reported All Other Systems: Reviewed and Negative
[2017-03-26] MEDS ORDERED: ATROPINE SULFATE 1 MG/10 ML SYR IVP PRN (12:06)
--- NOTE | 2017-03-26 12:10 | PDDXCAT ---
Diagnostic Cath Note - . Date: 03/26/17 Fishery Biologist: Denis Indication: CCC Class III and IV angina on medical treatment, other (Low risk treadmill) - Procedure Access: right wrist Procedure: left heart catheterization, coronary angiography, left ventriculogram - Materials Left Heart Cath size: 5F Left Heart Cath materials: JL3.5, JR4.0, pigtail - Findings-Left Heart Catheterization LM: Unobstructed LAD: LAD stents widely patent. Ostium of diagonal without focal stenosis. LCX: Unobstructed RCA: Dominant: Unobstructed EDP: 16 mm of mercury LVEF: 65 Wall motion: Normal Complications: None Estimated blood loss: <50ml Closure method: TR Band Assessment: 1. Atypical chest pain syndrome associated with anxiety. 2. Widely patent site of prior stenting without new focal stenosis. 3. Normal LV systolic function with normal filling pressures. Plan: Continue secondary prevention. Counseling regarding ongoing chest pain symptoms. Patient Problems: Problems Problem Status Onset Status post insertion of drug-eluting stent into left anterior descending (LAD) artery Acute Coronary arteriosclerosis Acute Chest pain Acute
[2017-03-26 15:37] VITALS: BP 119/70; PULSE 65
--- NOTE | 2017-03-26 19:38 | GDS ---
[f rep st] DISCHARGE SUMMARY DIAGNOSES: 1. Chest pain, noncardiac. 2. Hypertension. 3. Coronary artery disease, status post previous stent. 4. Type 2 diabetes. 5. Dyslipidemia. 6. Depression and anxiety. 7. Posttraumatic stress disorder. CONSULTATIONS: Cardiology, Dr. Oscar Barrios PROCEDURES DONE: Left heart cath, coronary angiography, and left ventriculogram. FINDINGS: Atypical chest pain associated with anxiety, widely patent site of prior stenting without new focal stenosis, normal LV function with normal filling pressures. HOSPITAL COURSE: The patient is a very nice 66-year-old woman with a history of coronary artery dis ease and multiple risk factors. She was admitted with chest pain. She said she was getting ready f or bed at about 10 p.m. when she experienced central chest pain radiating to her neck between her sh oulder blades. It was similar to her previous anginal episodes. The pain lasted several hours unti l she arrived at the emergency department and was relieved by nitroglycerin. She did feel diaphoret ic and nauseated during this episode. After arrival to the hospital, she was admitted for observati on. Serial enzymes were negative. EKG was nonischemic. However, given her history of risk factors , diabetes and previous stent, she was taken to the lab assistant with the above findings. At this time, it is felt her chest pain is noncardiac in nature, and she is stable for going home after she recov ers from her angiogram. CONDITION ON DISCHARGE: Good. Vital signs are stable. She is chest pain-free. DISCHARGE MEDICATIONS: She will resume her home meds. Please see med reconciliation form. FOLLOWUP INSTRUCTION: She should follow up with her primary care provider as needed. /[id number]/MODL
[2017-03-26] MEDS ORDERED: INSULIN DETEMIR 27 UNIT SQ SCH ×2 (21:00)
[2017-03-26] MEDS ORDERED: OMEGA-3 FATTY ACIDS 1,000 MG CAP PO SCH (21:00)
[2017-03-26] MEDS ORDERED: PROPRANOLOL HCL 20 MG TAB PO SCH (21:00)
[2017-03-26] MEDS ORDERED: ROSUVASTATIN CALCIUM 20 MG TAB PO SCH (21:00)
[2017-03-26] MEDS ORDERED: CHOLECALCIFEROL VIT D3 1,000 UNITS TAB PO SCH (21:00)
[2017-03-26] MEDS ORDERED: LISINOPRIL 10 MG TAB PO SCH (21:00)
[2017-03-27] MEDS ORDERED: ASPIRIN 325 MG TAB PO SCH (09:00)
[2017-03-27] MEDS ORDERED: VITAMIN B COMPLEX 1 EA CAP/TAB PO SCH (09:00)
== END 2017-03-26 16:27 | disposition home or self-care (01) ==
LOC: INTOOBSV 01:44 → F2W 02:22
PROVIDERS: ADMIT Student in an Organized Health Care Education/Training Program; ATTEND Student in an Organized Health Care Education/Training Program
PROC: B2151ZZ Fluoroscopy of Left Heart using Low Osmolar Contrast (ICD-10-PCS; principal; 2017-03-26)
PROC: B2111ZZ Fluoroscopy of Multiple Coronary Arteries using Low Osmolar Contrast (ICD-10-PCS; principal; 2017-03-26)
PROC: 4A023N7 Measurement of Cardiac Sampling and Pressure, Left Heart, Percutaneous Approach (ICD-10-PCS; principal; 2017-03-26)
DX: I25.119 Atherosclerotic heart disease of native coronary artery with unspecified angina pectoris (principal); R07.9 Chest pain, unspecified; I10 Essential (primary) hypertension; E78.5 Hyperlipidemia, unspecified; E11.9 Type 2 diabetes mellitus without complications; F41.8 Other specified anxiety disorders; F43.10 Post-traumatic stress disorder, unspecified; Z95.5 Presence of coronary angioplasty implant and graft
CPT/HCPCS: 71010; 93005; 93458; C1769; G0378; J1644; J2250; J3010; Q9967